=== PATIENT | female | born 1955 | race Caucasian/White ===

== ENCOUNTER 2017-09-04 17:03 | Inpatient (IN) | payer MEDICARE ==
[~2017-09-04] VITALS: Ht 170.2 cm; Wt 53.5 kg
[2017-09-04 17:42] LABS: *BILIRUBIN,URIN NEGATIVE (NEGATIVE); *BLOOD, URINE NEGATIVE (NEGATIVE); *CLARITY,URINE CLEAR (CLEAR); *COLOR,URINE YELLOW (YELLOW); *KETONES,URINE NEGATIVE (NEGATIVE); *PROTEIN,URINE NEGATIVE (NEGATIVE); *UROBILINOGEN,URINE 0.2 E.U./dl (NORMAL); LEUKOCYTE ESTERASE ,URINE NEGATIVE (NEGATIVE); NITRITE, URINE NEGATIVE (NEGATIVE); PH,URINE 7.5 (5.0-8.0); UGLUCOSE NEGATIVE (NEGATIVE)
[2017-09-04 17:52] LABS: SQUAMOUS EPITHELIAL CELL,UR FEW /HPF (NONE SEEN); WBC,URINE 0-3 /HPF (0-3)
[2017-09-04 17:53] LABS: BASOPHILS % (AUTO) 0.6 % (0.0-2.0); EOSINOPHILS # (AUTO) 0.1 K/uL (0.0-0.7); EOSINOPHILS % (AUTO) 1.9 % (0.0-7.0); HEMATOCRIT 35.6 % (37-47); HEMOGLOBIN 11.9 G/DL (12.0-16.0); LYMPHOCYTES % (AUTO) 27.2 % (20.5-51.5); MEAN CORPUSCULAR HEMOGLOBIN 29.1 UUG (27.0-31.0); MEAN CORPUSCULAR HGB CONC 34 g/dL (32.0-37.0); MEAN CORPUSCULAR VOLUME 86.8 FL (81.0-99.0); MONOCYTES # (AUTO) 0.6 K/UL (0.1-1.30); MONOCYTES % (AUTO) 8.5 % (0.0-11.0); NEUTROPHILS # (AUTO) 4.7 K/UL (1.8-8.9); NEUTROPHILS % (AUTO) 61.8 % (38.5-71.5); PLATELET COUNT (AUTO) 297 K/UL (150-450); RED BLOOD CELL COUNT(AUTO) 4.11 MIL/UL (4.2-5.4); WHITE BLOOD COUNT (AUTO) 7.4 K/UL (4.0-11.2)
[2017-09-04 17:54] LABS: *AMPHETAMINE, URINE NEGATIVE (NEGATIVE); *BARBITURATE, URINE NEGATIVE (NEGATIVE); *CANNABINOID, URINE NEGATIVE (NEGATIVE); *COCCAINE, URINE NEGATIVE (NEGATIVE); *OPIATE, URINE NEGATIVE (NEGATIVE); *PHENCYCLIDINE SCREEN,URINE NEGATIVE (NEGATIVE)
[2017-09-04 17:56] LABS: CARBON DIOXIDE 30 mmol/L (21-32); CHLORIDE 102 mmol/L (98-107); CREATININE 0.8 mg/dL (0.6-1.3); GLUCOSE 91 mg/dL (74-106); POTASSIUM 4.3 mmol/L (3.5-5.1); UREA NITROGEN, BLOOD 13 mg/dL (7-18)
[2017-09-04 18:07] LABS: ETHANOL < 3 MG/DL (0-0)
[2017-09-04 18:09] LABS: ACETAMINOPHEN < 2.0 ug/mL (10-30); ALANINE AMINOTRANSFERASE 23 U/L (14-59); ALKALINE PHOSPHATASE 96 U/L (50-136); ASPARTATE AMINOTRANSFERASE 14 U/L (15-37); BILIRUBIN,DIRECT 0.1 mg/dL (0.0-0.2); BILIRUBIN,TOTAL 0.3 mg/dL (0.2-1.0); TOTAL PROTEIN, SERUM 6.5 g/dL (6.4-8.2)
--- NOTE | 2017-09-04 18:35 | NUR ---
PT AT BEDSIDE TO TAKE THE PT HOME.
--- NOTE | 2017-09-04 18:38 | NUR ---
PT TRANSFERED TO MHU IN STABLE CONDITION
[2017-09-04] MEDS ORDERED: NA P133E RC (18:49)
[2017-09-04] MEDS ORDERED: CLON1TAB4 PO (18:49)
[2017-09-04] MEDS ORDERED: MAGN400O6 PO (18:49)
[2017-09-04] MEDS ORDERED: MAG-55 PO (18:49)
[2017-09-04] MEDS ORDERED: ACET325T53 PO (18:49)
[2017-09-04] MEDS ORDERED: IPRA3AMP IH (18:49)
[2017-09-04] MEDS ORDERED: NICO1PAT23 TD (18:49)
[2017-09-04] MEDS ORDERED: TRAZ-147 PO (18:49)
[2017-09-04] MEDS ORDERED: DOCU-141 PO (18:49)
[2017-09-04] MEDS ORDERED: BISA10SU12 RC (18:49)
[2017-09-04] MEDS ORDERED: SENN-167 PO (18:49)
[2017-09-04] MEDS ORDERED: PANT40TA4 PO (18:49)
[2017-09-04] MEDS ORDERED: METO25TA6 PO (18:49)
[2017-09-04] MEDS ORDERED: TEMA15CA PO (18:49)
[2017-09-04] MEDS ORDERED: MAG HYDROX/AL HYDROX/SIMETH 30 ML LIQUID UDC PO PRN (19:00)
[2017-09-04] MEDS ORDERED: MAGNESIUM HYDROXIDE 30 ML LIQUID UDC PO PRN ×2 (19:00→22:00)
[2017-09-04 20:30] VITALS: BP 119/82
[2017-09-04 20:35] VITALS: BP 119/82
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
[2017-09-04] MEDS ORDERED: ALBUTEROL SULFATE 2.5 MG/3 ML NEBU NEB PRN (22:00)
[2017-09-04] MEDS ORDERED: BISACODYL 10 MG SUPP.RECT RC PRN (22:00)
[2017-09-04] MEDS ORDERED: Medication Not On Formulary EA (Mag Hydrox/Al Hydrox/Simeth (Maalox Max Strength Susp) 3 PO PRN (22:00)
[2017-09-04] MEDS ORDERED: FLEET ENEMA 133 ML BOTTLE RC PRN (22:00)
[2017-09-04] MEDS ORDERED: IPRATROPIUM BROMIDE 0.5 MG/2.5 ML NEBU NEB PRN (22:00)
[2017-09-04] MEDS: LORAZEPAM 0.5 MG TABLET PO PRN (23:35)
--- NOTE | 2017-09-04 23:35 | NUR ---
PRN ativan, given for anxiety.
[2017-09-04] MEDS ORDERED: LORAZEPAM 0.5 MG TABLET ONE (23:47)
--- NOTE | 2017-09-05 06:00 | NUR ---
slept 6.75 hours total. currently watching tv with peers. no distress noted.
[2017-09-05 07:30] VITALS: BP 112/75
[2017-09-05] MEDS ORDERED: MAG HYDROX/AL HYDROX/SIMETH 30 ML LIQUID UDC PO PRN (07:45)
[2017-09-05] MEDS: LORAZEPAM 0.5 MG TABLET PO PRN ×2 (07:46→17:45)
[2017-09-05] MEDS: NICOTINE 14 MG/24HR PATCH TD SCH (08:46)
[2017-09-05] MEDS: DOCUSATE SODIUM 100 MG CAPSULE PO SCH ×2 (08:47→16:25)
[2017-09-05] MEDS: METOPROLOL TARTRATE 25 MG TABLET PO SCH ×2 (08:47→20:45)
[2017-09-05] MEDS: PANTOPRAZOLE SODIUM 40 MG TABLET.DR PO SCH (08:50)
[2017-09-05] MEDS ORDERED: NICOTINE 7 MG/24HR PATCH TD SCH (09:00)
[2017-09-05] MEDS: ACETAMINOPHEN 325 MG TABLET PO PRN ×2 (10:36→18:43)
--- NOTE | 2017-09-05 14:50 | NUR ---
Initial Discharge Instructions: Pt resides at [facility] ([facility]) [[address] [place], [place] [phone]]. Per pt, she would like to go there upon discharge. Test Manager awaiting return call from pt's , Brendan . SW will speak with pt,family,facility and MD regarding appropriate discharge plans. SW will form a safe and proper discharge.
[2017-09-05 16:07] VITALS: BP 115/74
[2017-09-05] MEDS ORDERED: QUETIAPINE FUMARATE 25 MG TABLET PO SCH (17:00)
[2017-09-05] MEDS ORDERED: IBUPROFEN 400 MG TABLET PO PRN (18:30)
[2017-09-05] MEDS: LIDOCAINE 5% PATCH TD SCH (19:02)
[2017-09-05 20:32] VITALS: BP 114/66
[2017-09-05] MEDS: SENNOSIDES 1 TABLET PO SCH (20:44)
[2017-09-05] MEDS: SIMVASTATIN 10 MG TABLET PO SCH (20:44)
[2017-09-05] MEDS: TRAZODONE 50 MG TABLET PO SCH (20:44)
[2017-09-05] MEDS: TEMAZEPAM 7.5 MG CAPSULE PO PRN (22:36)
[2017-09-06] MEDS: LORAZEPAM 0.5 MG TABLET PO PRN ×5 (03:30→23:49)
[2017-09-06] MEDS: PANTOPRAZOLE SODIUM 40 MG TABLET.DR PO SCH (06:18)
[2017-09-06] MEDS: ACETAMINOPHEN 325 MG TABLET PO PRN (06:18)
[2017-09-06 07:30] VITALS: BP 133/86
[2017-09-06] MEDS: LIDOCAINE 5% PATCH TD SCH (08:19)
[2017-09-06] MEDS: NICOTINE 14 MG/24HR PATCH TD SCH (08:19)
[2017-09-06] MEDS: METOPROLOL TARTRATE 25 MG TABLET PO SCH ×2 (08:19→20:00)
[2017-09-06] MEDS: DOCUSATE SODIUM 100 MG CAPSULE PO SCH ×2 (08:33→16:26)
[2017-09-06] MEDS ORDERED: QUETIAPINE FUMARATE 25 MG TABLET PO SCH (09:00)
[2017-09-06] MEDS: QUETIAPINE FUMARATE 100 MG TABLET PO SCH ×2 (09:41→16:21)
--- NOTE | 2017-09-06 12:21 | NUR ---
Discharge Planning Note: Pt's previous SNF unwilling to accept pt. SW faxed information to [facility] ([phone]). Spoke with Inga at the facility stating they are willing to accept pt when ready for discharge. SW will continue to talk with pt, family, MD, and facility regarding discharge plans. SW will form a safe and proper discharge plan.
[2017-09-06 15:00] VITALS: BP 112/71
[2017-09-06] MEDS: POLYVINYL ALCOHOL OPHT DROPS 15 ML BOTTLE EACHEYE PRN (16:21)
[2017-09-06] MEDS: SIMVASTATIN 10 MG TABLET PO SCH (20:00)
[2017-09-06] MEDS: TRAZODONE 50 MG TABLET PO SCH (20:00)
[2017-09-06] MEDS: SENNOSIDES 1 TABLET PO SCH (20:00)
[2017-09-06 20:18] VITALS: BP 140/93
[2017-09-06] MEDS: TEMAZEPAM 7.5 MG CAPSULE PO PRN (20:58)
[2017-09-07] MEDS: POLYVINYL ALCOHOL OPHT DROPS 15 ML BOTTLE EACHEYE PRN ×5 (01:00→20:56)
[2017-09-07] MEDS: PANTOPRAZOLE SODIUM 40 MG TABLET.DR PO SCH (06:21)
[2017-09-07 07:30] VITALS: BP 148/95
[2017-09-07 08:21] LABS: BASOPHILS % (AUTO) 0.5 % (0.0-2.0); EOSINOPHILS % (AUTO) 0.5 % (0.0-7.0); HEMATOCRIT 38.7 % (31.2-41.9); HEMOGLOBIN 13.8 g/dL (10.9-14.3); LYMPHOCYTES # (AUTO) 1.1 K/uL (20.0-40.0); LYMPHOCYTES % (AUTO) 17.3 % (20.5-51.5); MEAN CORPUSCULAR HEMOGLOBIN 30.6 uug (24.7-32.8); MEAN CORPUSCULAR HGB CONC 36 g/dL (32.3-35.6); MEAN CORPUSCULAR VOLUME 85.6 fL (75.5-95.3); MONOCYTES # (AUTO) 0.4 K/uL (2.0-10.0); MONOCYTES % (AUTO) 6.2 % (0.0-11.0); NEUTROPHILS # (AUTO) 4.9 K/uL (1.8-8.9); NEUTROPHILS % (AUTO) 75.5 % (38.5-71.5); PLATELET COUNT (AUTO) 311 K/uL (179-408); RED BLOOD CELL COUNT(AUTO) 4.52 MIL/uL (3.63-4.92); WHITE BLOOD COUNT (AUTO) 6.5 K/uL (3.8-11.8)
[2017-09-07] MEDS: DOCUSATE SODIUM 100 MG CAPSULE PO SCH ×2 (08:22→16:58)
[2017-09-07] MEDS: METOPROLOL TARTRATE 25 MG TABLET PO SCH ×2 (08:22→20:04)
[2017-09-07] MEDS: LIDOCAINE 5% PATCH TD SCH (08:22)
[2017-09-07] MEDS: QUETIAPINE FUMARATE 100 MG TABLET PO SCH ×2 (08:22→16:58)
[2017-09-07] MEDS: NICOTINE 14 MG/24HR PATCH TD SCH (08:22)
[2017-09-07 08:34] LABS: BILIRUBIN,TOTAL 0.5 mg/dL (0.2-1.0); CREATININE 0.7 mg/dL (0.6-1.3); MAGNESIUM 1.8 mg/dL (1.8-2.4); PHOSPHOROUS 3.9 mg/dL (2.5-4.9); POTASSIUM 4.2 mmol/L (3.5-5.1); TOTAL PROTEIN, SERUM 7.1 g/dL (6.4-8.2)
[2017-09-07] MEDS: LORAZEPAM 0.5 MG TABLET PO PRN ×2 (09:57→16:24)
[2017-09-07 15:00] VITALS: BP 147/99
[2017-09-07] MEDS: SIMVASTATIN 10 MG TABLET PO SCH (20:04)
[2017-09-07] MEDS: TRAZODONE 50 MG TABLET PO SCH (20:04)
[2017-09-07] MEDS: SENNOSIDES 1 TABLET PO SCH (20:04)
[2017-09-07 20:56] VITALS: BP_SYST 135; BP_DIAS 95; BP_DIAS 98
[2017-09-07] MEDS: TEMAZEPAM 7.5 MG CAPSULE PO PRN (21:27)
[2017-09-08] MEDS: POLYVINYL ALCOHOL OPHT DROPS 15 ML BOTTLE EACHEYE PRN ×4 (04:17→23:39)
[2017-09-08] MEDS: PANTOPRAZOLE SODIUM 40 MG TABLET.DR PO SCH (06:24)
[2017-09-08 07:30] VITALS: BP 149/95
[2017-09-08] MEDS: DOCUSATE SODIUM 100 MG CAPSULE PO SCH ×2 (09:29→16:35)
[2017-09-08] MEDS: QUETIAPINE FUMARATE 100 MG TABLET PO SCH ×2 (09:29→16:34)
[2017-09-08] MEDS: NICOTINE 14 MG/24HR PATCH TD SCH (09:29)
[2017-09-08] MEDS: METOPROLOL TARTRATE 25 MG TABLET PO SCH ×2 (09:29→20:08)
[2017-09-08] MEDS: LIDOCAINE 5% PATCH TD SCH (09:30)
[2017-09-08] MEDS: LORAZEPAM 0.5 MG TABLET PO PRN (13:17)
[2017-09-08 15:25] VITALS: BP 139/93
--- NOTE | 2017-09-08 18:55 | NUR ---
GPS: Less anxious and more re-directable. No increased agitation noted. Re-assured prn. Will continue to monitor.
[2017-09-08 20:06] VITALS: BP 118/71
[2017-09-08] MEDS: SENNOSIDES 1 TABLET PO SCH (20:08)
[2017-09-08] MEDS: TRAZODONE 50 MG TABLET PO SCH (20:08)
[2017-09-08] MEDS: SIMVASTATIN 10 MG TABLET PO SCH (20:08)
[2017-09-09] MEDS: TEMAZEPAM 7.5 MG CAPSULE PO PRN ×2 (00:27→22:02)
[2017-09-09] MEDS: LORAZEPAM 0.5 MG TABLET PO PRN ×2 (02:15→07:46)
[2017-09-09] MEDS: PANTOPRAZOLE SODIUM 40 MG TABLET.DR PO SCH (06:25)
[2017-09-09 07:30] VITALS: BP 141/92
[2017-09-09] MEDS: DOCUSATE SODIUM 100 MG CAPSULE PO SCH ×2 (08:42→16:52)
[2017-09-09] MEDS: LIDOCAINE 5% PATCH TD SCH (08:43)
[2017-09-09] MEDS: NICOTINE 14 MG/24HR PATCH TD SCH (08:43)
[2017-09-09] MEDS: QUETIAPINE FUMARATE 100 MG TABLET PO SCH ×2 (08:49→16:51)
[2017-09-09] MEDS: METOPROLOL TARTRATE 25 MG TABLET PO SCH ×2 (08:49→20:21)
[2017-09-09 15:30] VITALS: BP 140/94
[2017-09-09] MEDS: CLONAZEPAM 0.5 MG TABLET PO PRN (18:30)
[2017-09-09 20:00] VITALS: BP 120/85
[2017-09-09] MEDS: TRAZODONE 50 MG TABLET PO SCH (20:20)
[2017-09-09] MEDS: SENNOSIDES 1 TABLET PO SCH (20:20)
[2017-09-09] MEDS: SIMVASTATIN 10 MG TABLET PO SCH (20:20)
[2017-09-09] MEDS: POLYVINYL ALCOHOL OPHT DROPS 15 ML BOTTLE EACHEYE PRN (20:21)
--- NOTE | 2017-09-09 22:02 | NUR ---
received to care, pleasant upon approach. compliant with medications, and staff direction. as of 2201, she remains awake. PRN restoril was given at this time, for insomnia. currently lying in bed. will continue to monitor closely.
--- NOTE | 2017-09-09 23:00 | NUR ---
appars to be asleep. no distress noted.
[2017-09-10] MEDS: CLONAZEPAM 0.5 MG TABLET PO PRN ×3 (01:00→16:52)
--- NOTE | 2017-09-10 06:00 | NUR ---
slept 4.5 hours total. assisted with am care, and shower, currently lying in bed. no distress noted.
[2017-09-10] MEDS: PANTOPRAZOLE SODIUM 40 MG TABLET.DR PO SCH (06:28)
[2017-09-10 07:30] VITALS: BP 122/82
[2017-09-10] MEDS: METOPROLOL TARTRATE 25 MG TABLET PO SCH ×2 (08:41→20:15)
[2017-09-10] MEDS: QUETIAPINE FUMARATE 100 MG TABLET PO SCH ×2 (08:41→20:14)
[2017-09-10] MEDS: DOCUSATE SODIUM 100 MG CAPSULE PO SCH ×2 (08:41→16:59)
[2017-09-10] MEDS: NICOTINE 14 MG/24HR PATCH TD SCH (08:42)
[2017-09-10] MEDS: LIDOCAINE 5% PATCH TD SCH (08:42)
[2017-09-10] MEDS: POLYVINYL ALCOHOL OPHT DROPS 15 ML BOTTLE EACHEYE PRN ×2 (16:45→20:18)
[2017-09-10 16:51] VITALS: BP 124/85
[2017-09-10 20:14] VITALS: BP 116/67
[2017-09-10] MEDS: SIMVASTATIN 10 MG TABLET PO SCH (20:14)
[2017-09-10] MEDS: TRAZODONE 50 MG TABLET PO SCH (20:14)
[2017-09-10] MEDS: SENNOSIDES 1 TABLET PO SCH (20:14)
--- NOTE | 2017-09-10 22:00 | NUR ---
received to care, pleasant upon approach. compliant with medications, and staff direction. as of 0, she appears to be asleep. no distress noted. will continue to monitor closely.
[2017-09-10] MEDS: TEMAZEPAM 7.5 MG CAPSULE PO PRN (23:20)
--- NOTE | 2017-09-10 23:20 | NUR ---
PRN restoril, given for insomnia.
--- NOTE | 2017-09-10 23:45 | NUR ---
appears to be asleep.
[2017-09-11] MEDS: POLYVINYL ALCOHOL OPHT DROPS 15 ML BOTTLE EACHEYE PRN (02:15)
[2017-09-11] MEDS: CLONAZEPAM 0.5 MG TABLET PO PRN ×3 (02:15→18:46)
--- NOTE | 2017-09-11 02:15 | NUR ---
PRN klonopin, given for anxiety.
--- NOTE | 2017-09-11 06:30 | NUR ---
slept 7 hours, total.
[2017-09-11] MEDS: PANTOPRAZOLE SODIUM 40 MG TABLET.DR PO SCH (06:39)
[2017-09-11 08:03] VITALS: BP 102/67
[2017-09-11] MEDS: QUETIAPINE FUMARATE 100 MG TABLET PO SCH ×2 (08:08→20:10)
[2017-09-11] MEDS: NICOTINE 14 MG/24HR PATCH TD SCH (08:10)
[2017-09-11] MEDS: METOPROLOL TARTRATE 25 MG TABLET PO SCH ×2 (08:10→20:11)
[2017-09-11] MEDS: LIDOCAINE 5% PATCH TD SCH (08:10)
[2017-09-11] MEDS: DOCUSATE SODIUM 100 MG CAPSULE PO SCH ×2 (08:16→18:13)
[2017-09-11 15:50] VITALS: BP 137/84
[2017-09-11] MEDS: SENNOSIDES 1 TABLET PO SCH (20:10)
[2017-09-11] MEDS: SIMVASTATIN 10 MG TABLET PO SCH (20:10)
[2017-09-11] MEDS: TRAZODONE 50 MG TABLET PO SCH (20:10)
[2017-09-11 20:30] VITALS: BP 116/73
[2017-09-11] MEDS: TEMAZEPAM 7.5 MG CAPSULE PO PRN (22:10)
[2017-09-12] MEDS: CLONAZEPAM 0.5 MG TABLET PO PRN (05:11)
[2017-09-12] MEDS: PANTOPRAZOLE SODIUM 40 MG TABLET.DR PO SCH (06:17)
[2017-09-12 07:30] VITALS: BP 127/95
[2017-09-12] MEDS: NICOTINE 14 MG/24HR PATCH TD SCH (08:14)
[2017-09-12] MEDS: QUETIAPINE FUMARATE 100 MG TABLET PO SCH (08:14)
[2017-09-12] MEDS: LIDOCAINE 5% PATCH TD SCH (08:14)
[2017-09-12] MEDS: DOCUSATE SODIUM 100 MG CAPSULE PO SCH (08:14)
[2017-09-12 08:15] VITALS: BP 127/95
[2017-09-12] MEDS: METOPROLOL TARTRATE 25 MG TABLET PO SCH (08:15)
--- NOTE | 2017-09-12 09:00 | NUR ---
DC Note: Patient will be discharged to [facility] [[place], [place] [address]; ] via ambulance at 1:00pm. Spoke with PJ at the facility who states they are ready to accept patient today. Spoke with patient's /DPOA, Brendan who is aware and agreeable with discharge plans. Patient is aware and agreeable with discharge plans. Patient will follow-up at the facility with Dr. Deutsch (Pugger Helper) and Dr. Reed (Psychiatrist). Patient was provided with a brief substance abuse intervention for smoking cessation. Patient was referred to [employer] (800-LUNGUSA) and [employer] ([phone].)
--- NOTE | 2017-09-12 14:30 | NUR ---
1200 [facility]ED [facility] SNF SPOKE TO RN WHO WILL ADMIT THE PATIENT, NURSE INFORMED ABOUT MEDICATIONS TO CONTINUE DISCHARGE, DIAGNOSIS AND PATIENT MENTAL AND MEDICAL STATUS- RN VERBALIZED UNDERSTANDING. 1315 DISCHARGED PATIENT VIA AMBULANCE, ALERT AND OX3, DENIES SUICIDAL THOUGHTS/ DENIES HOMICIDAL IDEATIONS.
== END 2017-09-12 13:15 | DRG 885 ==
LOC: ER 17:04 → GPS 18:23
PROVIDERS: ADMIT Psychiatry & Neurology Psychiatry; ATTEND Internal Medicine
DX: F25.9 Schizoaffective disorder, unspecified (principal); E44.1 Mild protein-calorie malnutrition; E87.1 Hypo-osmolality and hyponatremia; F23 Brief psychotic disorder; Z68.1 Body mass index [BMI] 19.9 or less, adult; D64.9 Anemia, unspecified; I10 Essential (primary) hypertension; E78.5 Hyperlipidemia, unspecified; E88.09 Other disorders of plasma-protein metabolism, not elsewhere classified; F17.210 Nicotine dependence, cigarettes, uncomplicated; F32.9 Major depressive disorder, single episode, unspecified; J44.9 Chronic obstructive pulmonary disease, unspecified; K21.9 Gastro-esophageal reflux disease without esophagitis; I25.10 Atherosclerotic heart disease of native coronary artery without angina pectoris; M25.562 Pain in left knee
CPT/HCPCS: 36415; 80307; 83735; 84100; 84443; 85025; A4663; G0480; G0480-TC

== ENCOUNTER 2018-01-17 12:12 | Inpatient (IN) | payer MEDICARE, OTHER ==
[~2018-01-17] VITALS: Ht 167.6 cm; Wt 47.6 kg
[~2018-01-17 12:12] MED LIST: ACET325T53 PO; BISA10SU12 RC; CLON1TAB4 PO; DOCU-141 PO; IPRA3AMP IH; MAG-55 PO; MAGN400O6 PO; METO25TA6 PO; NA P133E RC; NICO-670 TD; PANT40TA4 PO; SENN-167 PO; TEMA15CA PO; TRAZ-147 PO
[2018-01-17] MEDS ORDERED: SIMV10TA6 PO (12:28)
[2018-01-17] MEDS ORDERED: BUDE10.22 IH (12:28)
[2018-01-17] MEDS ORDERED: ALBU18HF2 IH (12:28)
[2018-01-17] MEDS ORDERED: TEMA30CA5 PO (12:28)
[2018-01-17] MEDS ORDERED: LIDO30AD10 TD (12:28)
--- NOTE | 2018-01-17 12:58 | NUR ---
Attempted to give report to MHU, assigned nurse busy and to call back for report.
[2018-01-17] MEDS ORDERED: ALBUTEROL SULFATE 2.5 MG/3 ML NEBU NEB ONE (13:30)
[2018-01-17] MEDS ORDERED: HYDROCODONE/APAP 5-325MG TABLET PO ONE (13:30)
[2018-01-17] MEDS ORDERED: HYDROCODONE/APAP 5-325MG TABLET ONE (13:32)
[2018-01-17] MEDS ORDERED: ALBUTEROL SULFATE 2.5 MG/3 ML NEBU ONE (13:37)
--- NOTE | 2018-01-17 14:10 | NUR ---
Pt tarns to room 145b, Dr. Helms/ Dr. Deutsch accepting.
--- NOTE | 2018-01-17 14:10 | NUR ---
SBAR report given to Dm RN and pt trans to MHU with NAD noted.
[2018-01-17] MEDS ORDERED: MAG HYDROX/AL HYDROX/SIMETH 30 ML LIQUID UDC PO PRN (14:30)
[2018-01-17] MEDS ORDERED: MAGNESIUM HYDROXIDE 30 ML LIQUID UDC PO PRN (14:30)
[2018-01-17] MEDS: NICOTINE 21 MG/24HR PATCH TD SCH (16:11)
--- NOTE | 2018-01-17 17:43 | NUR ---
GPS RN NOTE:1430: ADMITTED PT FROM ER VIA WHEELCHAIR. PT IS ALERT, ORIENTED X2. PER 5150 HOLD, PT EXPRESSES SUICIDAL IDEATION BY OVERDOSE ON HER PRESCRIPTION, SHE HAS THOUGHTS TO BURN SELF WITH CIGARETTES. PT REFUSED TO ANSWER QUESTIONS AT THIS TIME AND REFUSED SKIN ASSESSMENT AND REFUSED TO SIGN ADMISSION PAPERWORK. CONTRABAND SEARCH DONE. ORIENTED TO ROOM AND UNIT POLICY. SAFETY ENVIRONMENT PROVIDED. Addendum: 01/17/18 at 1806 by KIKI BAÑUELOS RN UNDER THE CARE OF DR. BRADLEY AND DR. GUO AND WAS NOTIFIED OF ADMISSION. LEFT MESSAGE TO , VY DICKENS AT [phone].
--- NOTE | 2018-01-17 19:35 | NUR ---
Received pt in bed, asleep. Wakes to name call, easily. Alert, oriented x3. In stable condition. BP WNL. Tolerating RA, well. Afebrile. No active thoughts of harming self. Safety measures implemented. Will cont to monitor.
[2018-01-17 20:40] VITALS: BP 139/83
[2018-01-17] MEDS ORDERED: TRAZODONE 100 MG TABLET PO SCH (21:00)
[2018-01-17] MEDS: QUETIAPINE FUMARATE 100 MG TABLET PO SCH (21:25)
[2018-01-17] MEDS: ACETAMINOPHEN 325 MG TABLET PO PRN (23:03)
[2018-01-17] MEDS: LORAZEPAM 0.5 MG TABLET PO PRN (23:03)
--- NOTE | 2018-01-17 23:03 | NUR ---
Pt c/o left shoulder and leg pain. Tylenol administered as ordered. Pt also states feeling anxious, pacing in room. Ativan administered as ordered. Will cont to monitor.
[2018-01-17] MEDS ORDERED: IPRATROPIUM BROMIDE 0.5 MG/2.5 ML NEBU NEB PRN (23:30)
[2018-01-17] MEDS ORDERED: ALBUTEROL SULFATE 2.5 MG/3 ML NEBU NEB PRN (23:30)
--- NOTE | 2018-01-17 23:35 | NUR ---
Pt agitation ceased. Pt laying in bed, awake. No acute distress noted.
[2018-01-18] MEDS: TEMAZEPAM 7.5 MG CAPSULE PO PRN (01:51)
--- NOTE | 2018-01-18 01:51 | NUR ---
Pt c/o not being able to sleep. Restoril administered ordered.
--- NOTE | 2018-01-18 02:00 | NUR ---
assisted with a shower at her request, and assisted back to bed.
[2018-01-18 02:24] LABS: *BILIRUBIN,URIN NEGATIVE (NEGATIVE); *BLOOD, URINE NEGATIVE (NEGATIVE); *COLOR,URINE YELLOW (YELLOW); *KETONES,URINE NEGATIVE (NEGATIVE); *PROTEIN,URINE NEGATIVE (NEGATIVE); *UROBILINOGEN,URINE 0.2 E.U./dl (NORMAL); LEUKOCYTE ESTERASE ,URINE TRACE (NEGATIVE); NITRITE, URINE POSITIVE (NEGATIVE); PH,URINE 6.5 (5.0-8.0); UGLUCOSE NEGATIVE (NEGATIVE)
--- NOTE | 2018-01-18 02:30 | NUR ---
appears to be asleep. no distress no0ted.
[2018-01-18 02:45] LABS: *CLARITY,URINE HAZY (CLEAR)
[2018-01-18 02:46] LABS: BACTERIA,URINE MANY /HPF (NONE SEEN); RBC,URINE NONE SEEN /HPF (0-3); SQUAMOUS EPITHELIAL CELL,UR FEW /HPF (NONE SEEN)
[2018-01-18] MEDS: LORAZEPAM 0.5 MG TABLET PO PRN ×3 (05:54→15:14)
--- NOTE | 2018-01-18 05:54 | NUR ---
pt is now awake, and c/o anxiety; PRN ativan was given. currently watching tv. no distress noted.
--- NOTE | 2018-01-18 06:29 | NUR ---
Pt slept 8hrs and 45 min, total. Anxiety controlled. Pt in room, no acute changes noted. All needs attended. Safety maintained.
[2018-01-18 07:29] LABS: BASOPHILS % (AUTO) 0.9 % (0.0-2.0); EOSINOPHILS # (AUTO) 0.1 K/uL (0.0-0.7); EOSINOPHILS % (AUTO) 1.7 % (0.0-7.0); HEMATOCRIT 39.9 % (31.2-41.9); HEMOGLOBIN 13.5 g/dL (10.9-14.3); LYMPHOCYTES # (AUTO) 1.5 K/uL (20.0-40.0); LYMPHOCYTES % (AUTO) 34.1 % (20.5-51.5); MEAN CORPUSCULAR HEMOGLOBIN 28.8 uug (24.7-32.8); MEAN CORPUSCULAR HGB CONC 34 g/dL (32.3-35.6); MEAN CORPUSCULAR VOLUME 85.1 fL (75.5-95.3); MONOCYTES # (AUTO) 0.3 K/uL (2.0-10.0); MONOCYTES % (AUTO) 8.1 % (0.0-11.0); NEUTROPHILS # (AUTO) 2.4 K/uL (1.8-8.9); NEUTROPHILS % (AUTO) 55.2 % (38.5-71.5); PLATELET COUNT (AUTO) 254 K/uL (179-408); RED BLOOD CELL COUNT(AUTO) 4.68 MIL/uL (3.63-4.92); WHITE BLOOD COUNT (AUTO) 4.3 K/uL (3.8-11.8)
[2018-01-18 07:30] VITALS: BP 104/81
[2018-01-18] MEDS: PANTOPRAZOLE SODIUM 40 MG TABLET.DR PO SCH (07:31)
[2018-01-18 07:54] LABS: THYROID STIMULATING HORMONE 1.508 mIU/mL (0.358-3.740)
[2018-01-18 08:19] LABS: BILIRUBIN,TOTAL 0.4 mg/dL (0.2-1.0); CREATININE 0.8 mg/dL (0.6-1.3); MAGNESIUM 1.7 mg/dL (1.8-2.4); PHOSPHOROUS 4.3 mg/dL (2.5-4.9); TOTAL PROTEIN, SERUM 6.2 g/dL (6.4-8.2)
[2018-01-18] MEDS: NICOTINE 21 MG/24HR PATCH TD SCH (09:34)
[2018-01-18] MEDS: LIDOCAINE 5% PATCH TD SCH (09:45)
[2018-01-18] MEDS: QUETIAPINE FUMARATE 100 MG TABLET PO SCH ×2 (09:54→21:03)
[2018-01-18] MEDS ORDERED: TRAZODONE 50 MG TABLET PO PRN (10:30)
[2018-01-18] MEDS: FLUTICASONE/VILANTEROL 1 EACH BLST.W.DEV INH SCH (11:05)
[2018-01-18] MEDS ORDERED: MAGNESIUM OXIDE 400 MG TABLET PO ONE (11:30)
[2018-01-18] MEDS: CYANOCOBALAMIN 1000 MCG/ML VIAL IM SCH (12:21)
[2018-01-18] MEDS: SULFAMETH/TRIMETH 800/160 MG TABLET PO SCH ×2 (12:21→21:03)
[2018-01-18] MEDS: ACETAMINOPHEN 325 MG TABLET PO PRN (14:30)
[2018-01-18 15:00] VITALS: BP 112/77
[2018-01-18 20:00] VITALS: BP 105/75
[2018-01-18] MEDS: DOCUSATE SODIUM 100 MG CAPSULE PO SCH (21:02)
[2018-01-18] MEDS: HYDROCODONE/APAP 5-325MG TABLET PO PRN (21:02)
[2018-01-18] MEDS: SIMVASTATIN 10 MG TABLET PO SCH (21:03)
[2018-01-19] MEDS: TEMAZEPAM 7.5 MG CAPSULE PO PRN (00:55)
[2018-01-19] MEDS: LORAZEPAM 0.5 MG TABLET PO PRN ×3 (03:01→15:37)
[2018-01-19] MEDS: ACETAMINOPHEN 325 MG TABLET PO PRN (03:08)
[2018-01-19] MEDS: PANTOPRAZOLE SODIUM 40 MG TABLET.DR PO SCH (06:25)
--- NOTE | 2018-01-19 07:07 | NUR ---
RECEIVED Pt IN BED AWAKE, A+Ox3. Pt REPORTED 8/ DEPRESSION, THAT SHE'S DEPRESSED, "OVER MY SITUATION AT HOME WITH MY AND CONSTANT PAIN." Pt DENIES CURRENT THOOUGHTS OF SI AND CFS, BUT APPEARS UNRELIABLE FOR SAFETY OUTSIDE THE HOSPITAL. EXHIBITS BLUNTED AFFECT AND THOUGHT BLOCKING, AND SHE WILL STOP MED SENTENCE WITHOUT EXPLANATION. COMPLIANT WITH HS MEDICATIONS, COOPERAATIVE WITH STAFF DIRECTION AND CARE. APPEARS SOMEWHAT ANXIOUS, BUT REFUSED PRN. ISOLATIVE, NO PEER INTERACTION NOTED. 05/20 (L) KNEE PAIN EFFECTIVELY CONTROLLED WITH 5/325 NORCO. VS STABLE. Pt DID NOT SLEEP ALL NIGHT, REMAINS ANXIOUS AND DEPRESSED.
[2018-01-19 07:30] VITALS: BP 101/66
[2018-01-19] MEDS: SULFAMETH/TRIMETH 800/160 MG TABLET PO SCH (09:16)
[2018-01-19] MEDS: LIDOCAINE 5% PATCH TD SCH (09:17)
[2018-01-19] MEDS: NICOTINE 21 MG/24HR PATCH TD SCH (09:17)
[2018-01-19] MEDS: QUETIAPINE FUMARATE 100 MG TABLET PO SCH ×2 (09:17→21:43)
[2018-01-19] MEDS: FLUTICASONE/VILANTEROL 1 EACH BLST.W.DEV INH SCH (09:19)
[2018-01-19] MEDS: CYANOCOBALAMIN 1000 MCG/ML VIAL IM SCH (09:35)
[2018-01-19] MEDS ORDERED: TRAZODONE 50 MG TABLET PO SCH (11:15)
[2018-01-19] MEDS: HYDROCODONE/APAP 5-325MG TABLET PO PRN ×2 (13:42→21:50)
[2018-01-19] MEDS ORDERED: ALBUTEROL SULFATE 2.5 MG/3 ML NEBU NEB PRN (15:30)
[2018-01-19] MEDS: NITROFURANTOIN/NITROFURAN MAC 100 MG CAPSULE PO SCH ×2 (15:36→21:43)
[2018-01-19 16:15] VITALS: BP 95/59
[2018-01-19 20:05] VITALS: BP 107/60
[2018-01-19] MEDS: SIMVASTATIN 10 MG TABLET PO SCH (21:43)
[2018-01-19] MEDS: DOCUSATE SODIUM 100 MG CAPSULE PO SCH (21:43)
[2018-01-19] MEDS: TRAZODONE 100 MG TABLET PO SCH (21:43)
[2018-01-20] MEDS: TEMAZEPAM 7.5 MG CAPSULE PO PRN ×2 (01:45→21:11)
[2018-01-20] MEDS: PANTOPRAZOLE SODIUM 40 MG TABLET.DR PO SCH (06:01)
[2018-01-20] MEDS: LORAZEPAM 0.5 MG TABLET PO PRN ×2 (06:01→13:58)
[2018-01-20 07:30] VITALS: BP 94/57
[2018-01-20] MEDS: CYANOCOBALAMIN 1000 MCG/ML VIAL IM SCH (08:09)
[2018-01-20] MEDS: NICOTINE 21 MG/24HR PATCH TD SCH (08:09)
[2018-01-20] MEDS: NITROFURANTOIN/NITROFURAN MAC 100 MG CAPSULE PO SCH ×2 (08:09→20:02)
[2018-01-20] MEDS: LIDOCAINE 5% PATCH TD SCH (08:09)
[2018-01-20] MEDS: QUETIAPINE FUMARATE 100 MG TABLET PO SCH ×2 (08:09→20:02)
[2018-01-20] MEDS: FLUTICASONE/VILANTEROL 1 EACH BLST.W.DEV INH SCH (08:10)
[2018-01-20] MEDS: HYDROCODONE/APAP 5-325MG TABLET PO PRN ×3 (09:39→22:34)
--- NOTE | 2018-01-20 12:07 | NUR ---
Initial Discharge Instructions: Patient was residing at [facility] [[address], [place] [address]; [phone]]. Per pt she was "kicked out" of there because she was unable to provide a urine sample. Pt expressed she would like to return there. Sp[facility] with Martin at the [facility] who states they are unable to accept the patient back. SW will collaborate with pt and MD regarding appropriate discharge plan for this pt. SW will form a safe and proper discharge plan.
--- NOTE | 2018-01-20 12:16 | NUR ---
Firearms Report: Motor Boss completed and submitted [employer] Firearms Report on 01/20/18.
[2018-01-20 15:23] VITALS: BP 93/56
[2018-01-20] MEDS: ACETAMINOPHEN 325 MG TABLET PO PRN (20:01)
[2018-01-20] MEDS: SIMVASTATIN 10 MG TABLET PO SCH (20:02)
[2018-01-20] MEDS: DOCUSATE SODIUM 100 MG CAPSULE PO SCH (20:02)
[2018-01-20] MEDS: TRAZODONE 100 MG TABLET PO SCH (20:02)
[2018-01-20 20:44] VITALS: BP 91/60
[2018-01-21] MEDS: LORAZEPAM 0.5 MG TABLET PO PRN (05:20)
[2018-01-21] MEDS: ACETAMINOPHEN 325 MG TABLET PO PRN (05:20)
[2018-01-21] MEDS: PANTOPRAZOLE SODIUM 40 MG TABLET.DR PO SCH (06:03)
[2018-01-21 07:30] VITALS: BP 101/60
[2018-01-21] MEDS: CYANOCOBALAMIN 1000 MCG/ML VIAL IM SCH (08:36)
[2018-01-21] MEDS: QUETIAPINE FUMARATE 100 MG TABLET PO SCH ×2 (08:37→20:06)
[2018-01-21] MEDS: FLUTICASONE/VILANTEROL 1 EACH BLST.W.DEV INH SCH (08:37)
[2018-01-21] MEDS: LIDOCAINE 5% PATCH TD SCH (08:37)
[2018-01-21] MEDS: NICOTINE 21 MG/24HR PATCH TD SCH (08:37)
[2018-01-21] MEDS: NITROFURANTOIN/NITROFURAN MAC 100 MG CAPSULE PO SCH ×2 (08:37→20:05)
[2018-01-21] MEDS: HYDROCODONE/APAP 5-325MG TABLET PO PRN (13:41)
--- NOTE | 2018-01-21 14:22 | NUR ---
Discharge Planning Note: Spoke with patient about placement options, as she is unable to return to her previous placement. Patient expressed desire to go to a SNF, preferably in [facility] or farther north. ALEAH faxed inquiry to [facility] ([phone]; Attn: Hoa). Patient accepted. Spoke to pt about facility. Pt agreeable to discharge there when ready. ALEAH will follow-up with MD regarding anticipated DC date.
[2018-01-21 16:48] VITALS: BP 116/82
[2018-01-21] MEDS: DOCUSATE SODIUM 100 MG CAPSULE PO SCH (20:05)
[2018-01-21] MEDS: TRAZODONE 100 MG TABLET PO SCH (20:06)
[2018-01-21] MEDS: SIMVASTATIN 10 MG TABLET PO SCH (20:06)
[2018-01-21 20:36] VITALS: BP 120/82
[2018-01-22] MEDS: HYDROCODONE/APAP 5-325MG TABLET PO PRN (00:09)
--- NOTE | 2018-01-22 00:11 | NUR ---
PHARMACY NOTE: Pt C/O 06/20 LOWER BACK PAIN, REQUESTED NORCO. NORCO WAS PULLED FROM THE PYXIS, WHEN RN WENT BACK TO ROOM TO ADMINISTER, Pt WAS SLEEPING, MEDICATION WAS HELD. Pt AWOKE AT APPROXIMATELY MIDNIGHT, NORCO 5/325 ADMINISTERED AT THAT TIME.
[2018-01-22] MEDS: PANTOPRAZOLE SODIUM 40 MG TABLET.DR PO SCH (07:06)
[2018-01-22 07:30] VITALS: BP 148/89
[2018-01-22] MEDS: NITROFURANTOIN/NITROFURAN MAC 100 MG CAPSULE PO SCH ×2 (09:01→20:28)
[2018-01-22] MEDS: LIDOCAINE 5% PATCH TD SCH (09:02)
[2018-01-22] MEDS: CYANOCOBALAMIN 1000 MCG/ML VIAL IM SCH (09:02)
[2018-01-22] MEDS: NICOTINE 21 MG/24HR PATCH TD SCH (09:02)
[2018-01-22] MEDS: QUETIAPINE FUMARATE 100 MG TABLET PO SCH ×2 (09:02→20:31)
[2018-01-22] MEDS: FLUTICASONE/VILANTEROL 1 EACH BLST.W.DEV INH SCH (09:04)
[2018-01-22] MEDS: LORAZEPAM 0.5 MG TABLET PO PRN (12:54)
[2018-01-22 16:24] VITALS: BP 165/99
[2018-01-22 20:00] VITALS: BP 138/95
[2018-01-22] MEDS: DOCUSATE SODIUM 100 MG CAPSULE PO SCH (20:29)
[2018-01-22] MEDS: TRAZODONE 100 MG TABLET PO SCH (20:30)
[2018-01-22] MEDS: SIMVASTATIN 10 MG TABLET PO SCH (20:31)
--- NOTE | 2018-01-23 01:06 | NUR ---
PATIENT REMAINS IN ROOM AWAKE, ISOLATIVE/WITHDRAWN. PATIENT OCCASIONALLY COMING OUT OF HER ROOM AND STANDING STILL IN THE HALLWAY NOT SAYING A WORD, WHEN ASKED WHAT IS WRONG, DO YOU NEED ANYTHING? " I DON'T KNOW." OFFERED PATIENT IF SHE WOULD LIKE SOMETHING TO HELP HER SLEEP? "NO" PATIENT REDIRECTED TO ROOM.
[2018-01-23] MEDS: PANTOPRAZOLE SODIUM 40 MG TABLET.DR PO SCH (06:37)
[2018-01-23 07:30] VITALS: BP 129/75
[2018-01-23] MEDS: NITROFURANTOIN/NITROFURAN MAC 100 MG CAPSULE PO SCH ×2 (09:08→21:10)
[2018-01-23] MEDS: CYANOCOBALAMIN 1000 MCG/ML VIAL IM SCH (09:08)
[2018-01-23] MEDS: QUETIAPINE FUMARATE 100 MG TABLET PO SCH ×2 (09:08→21:11)
[2018-01-23] MEDS: LIDOCAINE 5% PATCH TD SCH (09:09)
[2018-01-23] MEDS: FLUTICASONE/VILANTEROL 1 EACH BLST.W.DEV INH SCH (09:09)
[2018-01-23] MEDS: NICOTINE 21 MG/24HR PATCH TD SCH (09:09)
[2018-01-23] MEDS: LORAZEPAM 0.5 MG TABLET PO PRN (18:38)
[2018-01-23 20:00] VITALS: BP 141/95
--- NOTE | 2018-01-23 21:00 | NUR ---
RECEIVED PT IN THE HALLWAY, SHE WAS NOTED A/O X 3 ABLE TO AMBULATED WITH STEADY GAIT. SHE WAS NOTED WITH DEPRESSED MOOD, FLAT AFFECT, WITHDRAWN. HOWEVER; SHE DENIES SI, AH/VA. SHE WAS ABLE TO CFS. SHE IS MEDICATION COMPLIANT AT THIS TIME. SAFETY EMPHASIS. BED AT LOWEST POSITION WITH SIDE RAIL UP X 2 WITH WHEELS LOCKED. ENVIRONMENT FREE FROM CLUTTER, WELL LIT AND FREQUENT HEAD CHECKS. WILL CONTINUE TO MONITOR CLOSELY.
[2018-01-23] MEDS: DOCUSATE SODIUM 100 MG CAPSULE PO SCH (21:09)
[2018-01-23] MEDS: TRAZODONE 100 MG TABLET PO SCH (21:09)
[2018-01-23] MEDS: SIMVASTATIN 10 MG TABLET PO SCH (21:11)
[2018-01-24] MEDS: PANTOPRAZOLE SODIUM 40 MG TABLET.DR PO SCH (06:43)
[2018-01-24 07:30] VITALS: BP 136/94
[2018-01-24] MEDS: LIDOCAINE 5% PATCH TD SCH (10:30)
[2018-01-24] MEDS: QUETIAPINE FUMARATE 100 MG TABLET PO SCH ×2 (10:30→20:56)
[2018-01-24] MEDS: NICOTINE 21 MG/24HR PATCH TD SCH (10:30)
[2018-01-24] MEDS: FLUTICASONE/VILANTEROL 1 EACH BLST.W.DEV INH SCH (10:30)
[2018-01-24] MEDS: CYANOCOBALAMIN 1000 MCG/ML VIAL IM SCH (10:30)
[2018-01-24] MEDS: NITROFURANTOIN/NITROFURAN MAC 100 MG CAPSULE PO SCH ×2 (11:35→20:55)
[2018-01-24 16:40] VITALS: BP 124/85
--- NOTE | 2018-01-24 17:30 | NUR ---
Gps/Psychiatry Physician- Quiet, remains in her oom, redirectable, flat affect, follows simple directions with min/prompting. Jayashree (Clinician) from [facility] , [facility] called, wants report on patient's progress [phone].
[2018-01-24] MEDS: DOCUSATE SODIUM 100 MG CAPSULE PO SCH (20:55)
[2018-01-24] MEDS: TRAZODONE 100 MG TABLET PO SCH (20:55)
[2018-01-24] MEDS: SIMVASTATIN 10 MG TABLET PO SCH (20:55)
[2018-01-24 21:17] VITALS: BP 124/82
--- NOTE | 2018-01-24 23:06 | NUR ---
Patient lying down on bed, quiet and keeps to herself. Compliant with her meds and displays a nice disposition at this time. Denies any pain. Will continue to monitor.
--- NOTE | 2018-01-24 23:30 | NUR ---
continues to sleep. no distress noted. will continue to monitor closely.
[2018-01-25 05:35] VITALS: BP 159/100
--- NOTE | 2018-01-25 05:35 | NUR ---
pt was observed to be what appeared to resemble a tonic-clonic seizure, with body tremors, and jerking movements, which lasted approximately 5-7 seconds, at 0530. as of 0535, her b/p is 159/100. remains disoriented. appears to have scratched herself on the neck. will continue to monitor closely
[2018-01-25 05:40] VITALS: BP 124/100
--- NOTE | 2018-01-25 05:40 | NUR ---
remains disoriented. v/s are 124/100, hr 124, O2sat is 96%
--- NOTE | 2018-01-25 05:40 | NUR ---
ADDENDUM; Dr Duffy was notified of incident. he ordered pt to be transferred to the Emergency room, and to have a stat CT of the head.
[2018-01-25 05:45] VITALS: BP 124/92
--- NOTE | 2018-01-25 05:45 | NUR ---
pt appears alert, now. v/s 127/92, hr 129, O2SAT 92. is aware she is in the hospital.
--- NOTE | 2018-01-25 06:00 | NUR ---
transferred to the emergency room, in stable condition, for evaluation.
[2018-01-25] MEDS: PANTOPRAZOLE SODIUM 40 MG TABLET.DR PO SCH (07:00)
--- NOTE | 2018-01-25 09:13 | NUR ---
Gpa/Merchant Tailor- Received patient from ER via wheel chair alert, , confused, no distress, b/p 133/90 02 sat 95%, tachy at 129, slighjtly irregular, per ER Nurse Dr Jenaro Spencer cleared patient. Pt. denies any pain or any discomfort, good oral care encouraged before eating her breakfast. Reviewed safety, monitored closely .
[2018-01-25 09:31] VITALS: BP 133/90
[2018-01-25] MEDS: NITROFURANTOIN/NITROFURAN MAC 100 MG CAPSULE PO SCH ×2 (09:36→21:14)
[2018-01-25] MEDS: LIDOCAINE 5% PATCH TD SCH (09:37)
[2018-01-25] MEDS: FLUTICASONE/VILANTEROL 1 EACH BLST.W.DEV INH SCH (09:37)
[2018-01-25] MEDS: QUETIAPINE FUMARATE 100 MG TABLET PO SCH ×2 (09:37→21:14)
[2018-01-25] MEDS: NICOTINE 21 MG/24HR PATCH TD SCH (09:37)
[2018-01-25] MEDS: CYANOCOBALAMIN 1000 MCG/ML VIAL IM SCH (09:38)
[2018-01-25 16:02] VITALS: BP 115/73
[2018-01-25] MEDS: ACETAMINOPHEN 325 MG TABLET PO PRN (16:09)
[2018-01-25 20:00] VITALS: BP 125/83
[2018-01-25] MEDS: DOCUSATE SODIUM 100 MG CAPSULE PO SCH (21:14)
[2018-01-25] MEDS: SIMVASTATIN 10 MG TABLET PO SCH (21:15)
[2018-01-25] MEDS: TRAZODONE 100 MG TABLET PO SCH (21:15)
[2018-01-25] MEDS: TEMAZEPAM 7.5 MG CAPSULE PO PRN (23:36)
[2018-01-25] MEDS: HYDROCODONE/APAP 5-325MG TABLET PO PRN (23:36)
[2018-01-26] MEDS: TEMAZEPAM 7.5 MG CAPSULE PO PRN (02:00)
[2018-01-26] MEDS: HYDROCODONE/APAP 5-325MG TABLET PO PRN (02:24)
[2018-01-26] MEDS: PANTOPRAZOLE SODIUM 40 MG TABLET.DR PO SCH (07:00)
--- NOTE | 2018-01-26 07:29 | NUR ---
GPS/NSG PATIENT OBSERVED ON UNIT PACING WITH INCREASED LEVEL OF ANXIETY. DISHEVELED APPEARANCE /UNKEMPT. OBSERVED APPROACHING STAFF, ASKING FOR THE NUMBER FOR THE HOSPITAL, ASKING TO SPEAK TO JAVI, PATIENT CONFUSED HARD TO REDIRECT UNABLE TO ESTABLISH A COHERENT LEVEL OF COMMUNICATION. PATIENT REPLIED TO STAFF WITH IRRELEVANT RESPONSES, ASKING STAFF TO REMOVE THE CLOCK BECAUSE SHE NEEDED TO KNOW THE TIME. PATIENT REQUESTING PAIN MANAGEMENT. COMPLIANT WITH HS MEDICATION. PRN FOR INSOMNIA ADMINISTERED ORDERED WITH INEFFECTIVE OUTCOME. PRN FOR PAIN LEVEL 7/10 GENERALIZED PAIN ADMINISTERED ORDERED WITH EFFECTIVE OUTCOME. PATIENT OBSERVED OUT ON HALLWAY ON SEVERAL OCCASIONS MAKING NONSENSICAL STATEMENTS, REQUIRED REDIRECTION WELL OBSERVATION FOR SAFETY PATIENT AT RISK FOR FALLS.
[2018-01-26 07:30] VITALS: BP 148/77
[2018-01-26] MEDS: NITROFURANTOIN/NITROFURAN MAC 100 MG CAPSULE PO SCH (08:09)
[2018-01-26] MEDS: LIDOCAINE 5% PATCH TD SCH (08:09)
[2018-01-26] MEDS: NICOTINE 21 MG/24HR PATCH TD SCH (08:09)
[2018-01-26] MEDS: FLUTICASONE/VILANTEROL 1 EACH BLST.W.DEV INH SCH (08:10)
[2018-01-26] MEDS: QUETIAPINE FUMARATE 100 MG TABLET PO SCH ×2 (10:55→21:00)
--- NOTE | 2018-01-26 15:00 | NUR ---
Gps/Potato Chip Sacking Machine Operator- Anxious, restless,wrapping bed sheets around her, speaking in Panamanian, asking for help, speech incoherent difficulty redirecting patient. Poured water on her bed, c/o pain on her left knee when offered tylenol, pt. spit out medication and threw cup of water on the wall. Patient put on the hyacinth-chair for for safety.
[2018-01-26] MEDS: LORAZEPAM 0.5 MG TABLET PO PRN (15:20)
[2018-01-26] MEDS: ACETAMINOPHEN 325 MG TABLET PO PRN (15:49)
--- NOTE | 2018-01-26 15:50 | NUR ---
Gps/Gear Generator Set Up Operator- Re offered tylenol 650 mg po, claimed she has left knee pain unable to rate pain level, kept calling out help ,help, r/t pain , pt. spit out tylenol when offered. gets figity, anxious, remains on her hyacinth-chair, continue to monitor closely for her safety, patient not making sense.
[2018-01-26 15:59] VITALS: BP 165/91
[2018-01-26] MEDS ORDERED: diphenhydrAMINE 50 MG/1 ML VIAL IM ONE (17:15)
[2018-01-26] MEDS ORDERED: LORAZEPAM 2 MG/1 ML VIAL IM ONE (17:15)
[2018-01-26] MEDS ORDERED: HALOPERIDOL DECANOATE 50 MG/1 ML AMPUL IM ONE (17:15)
[2018-01-26] MEDS ORDERED: HALOPERIDOL LACTATE 5 MG/1 ML VIAL IM ONE (17:30)
--- NOTE | 2018-01-26 17:30 | NUR ---
Gps/Track Subway Repair Supervisor- Patient continue to disrobe, not following direction, loud, sliding from her hyacinth-chair, restless, Dr Anderson was called, notified of pt. behavior, order received.
--- NOTE | 2018-01-26 18:10 | NUR ---
Gps/Principal Associate- patient continue to be aggressve with staff,trying to hit and bite , director information security was called to assist with pt. was put on close supervision, 1:1 for now. for patient safety. Patient continue to be agitated, grabbing trash can throwing them.Kept in front of Nurses station for close supervision.
--- NOTE | 2018-01-26 18:29 | NUR ---
Gps/Silk Screen Repairer- Loud talking in Sinhala, remains anxious,agitated, potential for fall closely supervised ..Constant redirections provided.
[2018-01-26] MEDS: DOCUSATE SODIUM 100 MG CAPSULE PO SCH (21:00)
[2018-01-26] MEDS: SIMVASTATIN 10 MG TABLET PO SCH (21:00)
[2018-01-26] MEDS: TRAZODONE 100 MG TABLET PO SCH (21:00)
[2018-01-26] MEDS ORDERED: HALOPERIDOL LACTATE 5 MG/1 ML VIAL IM STA (21:21)
[2018-01-26] MEDS ORDERED: LORAZEPAM 2 MG/1 ML VIAL IM STA (21:21)
[2018-01-26] MEDS ORDERED: diphenhydrAMINE 50 MG/1 ML VIAL IM STA (21:21)
--- NOTE | 2018-01-26 22:06 | NUR ---
Patient received in hyacinth chair, grabbing patient's clothing, yelling, screaming, aggressive, punching and kicking. Patient disrobing not able to follow directions. Patient is speaking in Greenlandic and Cook Islander, anxious, labile, refusing medication throwing water on the floor. Patient climbing out of the hyacinth chair, requires constant redirection. Patient alert/oriented x1 with confusion noted, disorganized. Dr. Nguyễn doing rounds and ordered Benadryl 25mg, Ativan 2mg, Haldol 5mg IM. Continue with current treatment plan. Patient remains with a 1:1 sitter for safety.
--- NOTE | 2018-01-27 02:35 | NUR ---
PATIENT REMAINS WITH A 1:1 SITTER FOR SAFETY. PATIENT REMAINS CONFUSED, DISORGANIZED, DISORIENTED. PATIENT CONTINUES TO DISROBE HER CLOTHING, TRYING TO CLIMB OUT OF THE CHRISTINA CHAIR. PATIENT REQUIRES CONSTANT REDIRECTION. PATIENT IS LESS AGITATED, HOWEVER IS UNPREDICTABLE. LESS YELLING/SCREAMING. PATIENT REMAINS LABILE WITH STAFF. WILL CONTINUE WITH CURRENT TREATMENT PLAN.
[2018-01-27] MEDS: PANTOPRAZOLE SODIUM 40 MG TABLET.DR PO SCH (06:32)
[2018-01-27] MEDS: NICOTINE 14 MG/24HR PATCH TD SCH (08:12)
[2018-01-27] MEDS: LIDOCAINE 5% PATCH TD SCH (08:12)
[2018-01-27] MEDS: FLUTICASONE/VILANTEROL 1 EACH BLST.W.DEV INH SCH (08:52)
[2018-01-27] MEDS: QUETIAPINE FUMARATE 200 MG TABLET PO SCH ×2 (09:00→21:00)
[2018-01-27] MEDS: METOPROLOL TARTRATE 25 MG TABLET PO SCH ×2 (09:00→21:00)
--- NOTE | 2018-01-27 09:45 | NUR ---
GPS: Nursing Notes: Severe Agitation:] Patient is awake and responding to her name, continue with 1:1 sitter for safety, refusing her Po medications, poor anger management, setting limits, but unable to follow directions, restless behavior, confused, kicking and hitting staff when assisting her with ADL's, talking and mumbling to unseen others, unable to be redirected, climbing on top of the hyacinth chair, Dr. Scooter sinha by charge nurse, continue to monitor patient for safety, continue with treatment plan.
[2018-01-27] MEDS: HYDROCODONE/APAP 5-325MG TABLET PO PRN (09:50)
[2018-01-27] MEDS ORDERED: diphenhydrAMINE 50 MG/1 ML VIAL IM STA (09:51)
[2018-01-27] MEDS ORDERED: HALOPERIDOL LACTATE 5 MG/1 ML VIAL IM STA (09:51)
[2018-01-27] MEDS ORDERED: LORAZEPAM 2 MG/1 ML VIAL IM STA (09:51)
[2018-01-27] MEDS: CYANOCOBALAMIN 1000 MCG/ML VIAL IM SCH (10:16)
--- NOTE | 2018-01-27 10:17 | NUR ---
GPS: Nursing Notes: Chemical Restraint: Patient continue to be over disruptive, restless behavior, unable to be redirected, poor impulse control, kicking and grabbing staff uniform and will not let go, confused, disorganized, episodes of trying to bite staff, Dr. Helms called and order: Haldol 5mg IM, Ativan 2mg IM and Benadryl 25mg IM STAT X1, refusing V/S, continue to be aggressive and uncooperative, continue with 1:1 sitter for safety, continue with treatment plan.
--- NOTE | 2018-01-27 10:47 | NUR ---
GPS: Nursing Notes: Reassessment of Chemical Restraint: Patient continue to be restless, trying to kick 1:1 sitter, confused, disorganized, talking incoherently, poor impulse control, internally preoccupied, unable to be redirected, striking out at staff, medication IM STAT was not effective, refusing V/S, informed charge nurse, continue with 1:1 sitter for safety, continue with treatment plan.
--- NOTE | 2018-01-27 15:07 | NUR ---
GPS: Nursing Notes: Restless, Agitated Behavior: Patient is awake and responding to internal stimuli by talking to unseen others, talking incoherently, restless behavior, crawling on the floor, kicking at staff, poor impulse control, setting limits, but unable to be redirected, continue with 1:1 sitter, but resistant with nursing care, continue with treatment plan.
[2018-01-27] MEDS ORDERED: OLANZAPINE 10 MG VIAL IM STA (15:16)
--- NOTE | 2018-01-27 15:39 | NUR ---
GPS: Nursing Notes: Chemical Restraint: Patient continue to be disruptive, impaired judgment, poor impulse control, resistant with nursing care, loud and angry affect, refusing her PO medications this am, episodes of trying to kick staff, striking out at staff, continue with 1:1 sitter for safety, care transfer to Dr. Anderson, orders from Dr. Anderson: Zyprexa 10mg IM STAT X1, continue to refuse V/S, continue with treatment plan.
--- NOTE | 2018-01-27 16:09 | NUR ---
GPS: Nursing Notes: Reassessment of Chemical Restraint: Patient is awake and responding to her name, poor impulse control, refusing V/S, kicking staff on the legs, resistant with nursing care, confused, disorganized, impaired judgment, medication IM was helpful, but not effective, episodes of shouting, continue with 1:1 sitter for safety, informed charge nurse, continue with treatment plan.
[2018-01-27] MEDS: DOCUSATE SODIUM 100 MG CAPSULE PO SCH (21:00)
[2018-01-27] MEDS: TRAZODONE 100 MG TABLET PO SCH (21:00)
[2018-01-27] MEDS: SIMVASTATIN 10 MG TABLET PO SCH (21:00)
[2018-01-27] MEDS: OLANZAPINE ZYDIS 5 MG TAB.RAPDIS PO SCH (21:00)
--- NOTE | 2018-01-27 21:39 | NUR ---
Patient received in hyacinth chair, remains with a 1:1 sitter for safety. Patient remains unpredictable, confused, disorganized, and resistant to nursing care. Patient less agitated, however is unpredictable. Patient continues to refuse medication kicking her legs when you come close to her, and refusing vital signs. Patient still grabbing clothing when residents walk by.anxious, labile. Poor impulse control, poor judgement, poor safety awareness. Will continue with current treatment plan.
[2018-01-28] MEDS: PANTOPRAZOLE SODIUM 40 MG TABLET.DR PO SCH (06:42)
[2018-01-28] MEDS: NICOTINE 14 MG/24HR PATCH TD SCH (08:37)
[2018-01-28] MEDS: CYANOCOBALAMIN 1000 MCG/ML VIAL IM SCH (08:37)
[2018-01-28] MEDS: FLUTICASONE/VILANTEROL 1 EACH BLST.W.DEV INH SCH (08:38)
[2018-01-28] MEDS: LIDOCAINE 5% PATCH TD SCH (08:38)
[2018-01-28] MEDS: QUETIAPINE FUMARATE 200 MG TABLET PO SCH ×2 (08:38→20:22)
[2018-01-28] MEDS: METOPROLOL TARTRATE 25 MG TABLET PO SCH ×2 (08:38→20:23)
[2018-01-28 20:00] VITALS: BP 137/78
[2018-01-28] MEDS: DOCUSATE SODIUM 100 MG CAPSULE PO SCH (20:22)
[2018-01-28] MEDS: SIMVASTATIN 10 MG TABLET PO SCH (20:22)
[2018-01-28] MEDS: OLANZAPINE ZYDIS 5 MG TAB.RAPDIS PO SCH (20:22)
[2018-01-28] MEDS: TRAZODONE 100 MG TABLET PO SCH (20:23)
--- NOTE | 2018-01-28 20:30 | NUR ---
RECEIVED PATIENT IN HER ROOM IN BED. SHE IS NOTED AWAKE A/O X 1. SHE CONTINUE ON 1:1 SUPERVISION FOR SAFETY PRECAUTION. NOTED CALM AND COOPERATIVE, COMPLIANT WITH MEDICATION REGIMENT. PT HAD FEW BITES OF A SANDWICH AND ORANGE JUICE. NOTED WITH DEPRESSED MOOD, FLAT AFFECT, POOR EYE CONTACT. POOR HISTORIAN. SAFETY EMPHASIS.
--- NOTE | 2018-01-28 22:59 | NUR ---
IT WAS NOTED IN THE I&O RECORDS THAT PT HAS NOT HAD A BM SINCE 01/21/18. WHEN ASKED. PT STATED THAT SHE HAD A BM YESTERDAY. ABDOMINAL ASSESSMENT NON-TENDER, NON-DISTENDED NORMAL BOWEL SOUNDS NOTED IN ALL 4 QUADRANT. PT DENIES PAIN OR DISCOMFORT. SHE DENIES MOM PRN. WILL CONTINUE TO MONITOR CLOSELY.
[2018-01-29] MEDS: PANTOPRAZOLE SODIUM 40 MG TABLET.DR PO SCH (06:44)
--- NOTE | 2018-01-29 07:00 | NUR ---
PT SLEPT FOR APPROX 9.00HRS THROUGH THE NIGHT. SHE WAS NOTED A/O X 1 NO CHANGES IN LOC. COMPLY WITH MEDICATION REGIMENT. NO BX PROBLEMS NOTED OR REPORTED DURING THE SHIFT.
[2018-01-29 07:30] VITALS: BP 127/75
[2018-01-29] MEDS: QUETIAPINE FUMARATE 200 MG TABLET PO SCH ×2 (09:35→20:10)
[2018-01-29] MEDS: LIDOCAINE 5% PATCH TD SCH (09:35)
[2018-01-29] MEDS: METOPROLOL TARTRATE 25 MG TABLET PO SCH ×2 (09:35→20:09)
[2018-01-29] MEDS: NICOTINE 14 MG/24HR PATCH TD SCH (09:38)
[2018-01-29] MEDS: CYANOCOBALAMIN 1000 MCG/ML VIAL IM SCH (09:45)
[2018-01-29] MEDS: FLUTICASONE/VILANTEROL 1 EACH BLST.W.DEV INH SCH (09:45)
[2018-01-29] MEDS: LORAZEPAM 0.5 MG TABLET PO PRN (12:01)
[2018-01-29] MEDS: HYDROCODONE/APAP 5-325MG TABLET PO PRN (14:44)
--- NOTE | 2018-01-29 14:45 | NUR ---
patient discharged to [facility] via ambulance in no acute distress with all belongings . REPORT CALLED TO KAITLIN AT THE FACILITY , REPORT GIVEN TO PARAMEDICS , SUTURES C/D/I WITH NO MDRAINAge or bleeding or swelling noted . Addendum: 01/29/18 at 1756 by MASOOD GRIFFIN RN charted on wrong patient dis regard above note
[2018-01-29] MEDS: GABAPENTIN 300 MG CAPSULE PO SCH ×2 (15:47→17:23)
[2018-01-29 16:24] VITALS: BP 116/82
[2018-01-29] MEDS: TRAZODONE 100 MG TABLET PO SCH (20:08)
[2018-01-29 20:09] VITALS: BP 120/78
[2018-01-29] MEDS: OLANZAPINE ZYDIS 5 MG TAB.RAPDIS PO SCH (20:10)
[2018-01-29] MEDS: SIMVASTATIN 10 MG TABLET PO SCH (20:10)
--- NOTE | 2018-01-29 20:15 | NUR ---
RECEIVED PATIENT IN HER BED, SHE IS A/O X 1, DISORGANIZED, EASILY IRRITABLE, GUARDED. WITHDRAWN, DEPRESSED MOOD, FLAT AFFECT. HOWEVER, NO AGGRESSIVE/COMBATIVE BX NOTED AT THIS TIME. DENIES SI OR PLAN TO HARM SELF. ABLE TO CFS. ABLE TO COMPLY WITH MEDICATION REGIMEN. PT CONTINUE ON 1:1 SUPERVISION FOR SAFETY PRECAUTION. WILL CONTINUE TO MONITOR.
[2018-01-29] MEDS: DOCUSATE SODIUM 100 MG CAPSULE PO SCH (20:29)
[2018-01-30] MEDS: PANTOPRAZOLE SODIUM 40 MG TABLET.DR PO SCH (06:12)
[2018-01-30] MEDS: HYDROCODONE/APAP 5-325MG TABLET PO PRN (06:12)
[2018-01-30 07:30] VITALS: BP 99/65
[2018-01-30] MEDS: CYANOCOBALAMIN 1000 MCG/ML VIAL IM SCH (08:28)
[2018-01-30] MEDS: QUETIAPINE FUMARATE 200 MG TABLET PO SCH ×2 (08:28→21:00)
[2018-01-30] MEDS: GABAPENTIN 300 MG CAPSULE PO SCH ×3 (08:28→17:34)
[2018-01-30] MEDS: NICOTINE 14 MG/24HR PATCH TD SCH (08:28)
[2018-01-30] MEDS: FLUTICASONE/VILANTEROL 1 EACH BLST.W.DEV INH SCH (08:29)
[2018-01-30] MEDS: METOPROLOL TARTRATE 25 MG TABLET PO SCH ×2 (08:29→21:00)
[2018-01-30] MEDS: LIDOCAINE 5% PATCH TD SCH (09:38)
[2018-01-30] MEDS: LORAZEPAM 0.5 MG TABLET PO PRN (11:04)
--- NOTE | 2018-01-30 13:01 | NUR ---
Gps/Dipper Fish- Had been pleasant and quiet, during rounds, had been compliant with her routine medications, refused to attend her group therapy, questioning her medications, reviewed with patient, verbalized understanding. Behavioral Health from [facility] called, reviewed patients' progress.
--- NOTE | 2018-01-30 13:49 | NUR ---
Discharge Note: Patient will be discharged to [facility] [[address] [place] [address]; [phone]] via ambulance. Spoke to Chelsea at the facility who states they are ready to accept the patient today. Patient is aware and agreeable with discharge plans. Spoke to Teodora at [facility] ([phone]) who follows the patient, and she is aware and agreeable with discharge plan. Patient will follow-up at the facility with Dr. Daniels (Ethylene Plant Helper) and Dr. Whiteside (Psychiatrist). Addendum: 01/30/18 at 1411 by JASSI TRUONG SW Patient was provided with a brief substance abuse intervention and referred to [facility] ([phone]); [facility] ([phone]) and [facility] National HelpLine (7-938-728-HELP (2144). Patient was also referred to the National Suicide Prevention Lifeline ( ).
--- NOTE | 2018-01-30 16:18 | NUR ---
Gps/Botanical Technical Officer- Discharge planning in progress, patient will be discharged to [facility] in [place], patient was well informed of her discharged.Report was already given to facility by DOMINIQUE Hicks. Patient in good spirit reviewed discharged instructions, and medications, safety emphasized patient verbalized understanding.
[2018-01-30 16:35] VITALS: BP 116/68
--- NOTE | 2018-01-30 18:38 | NUR ---
Gps/Job Placement Specialist- Patient starting to get anxious paranoid about her dc. plan, she called her ex- Brendan Mcnair at [phone] informed of dc.plan . Noted increased paranoia, she told her ex she does not trust this discharge plan "something is cooking" . Talked to ex- informed facility she's going to and tel.number was given per pt. request. Awaiting for the ambulance for poultry picker as arranged , estimated poultry picker time was 1814.
[2018-01-30 20:17] VITALS: BP 106/76
--- NOTE | 2018-01-30 20:30 | NUR ---
gps/visitor services assistant: patient refused all po hs medications. patient discharged to [facility] via ambulanz in stable condition @ 0 pm. v/s wnl. all belonging given upon discharg .no agitation noted. a
--- NOTE | 2018-01-30 20:57 | NUR ---
Transportation staff here to pick pt, pt refusing to get out of her room saying " i am not leaving," she demanded to see the ID card of the transport staff which was shown to her, meanwhile, application security engineer was called in for "show of presence" , pt was still resisting and refusing to go on the gurney, pt stating she "has the right to refuse discharge", reality orientation provided, pt becoming more verbal and intimidating, pt was strongly encouraged to sit on the gurney, her legs put up and safety belts applied for safety. Pt left the unit with all her belongings.
[2018-01-30] MEDS: DOCUSATE SODIUM 100 MG CAPSULE PO SCH (21:00)
[2018-01-30] MEDS: TRAZODONE 100 MG TABLET PO SCH (21:00)
[2018-01-30] MEDS: OLANZAPINE ZYDIS 5 MG TAB.RAPDIS PO SCH (21:00)
[2018-01-30] MEDS: SIMVASTATIN 10 MG TABLET PO SCH (21:00)
== END 2018-01-30 21:00 | DRG 885 ==
LOC: ER 12:16 → GPS 13:54
PROVIDERS: ADMIT Psychiatry & Neurology Psychiatry; ATTEND Internal Medicine
DX: F25.0 Schizoaffective disorder, bipolar type (principal); E83.42 Hypomagnesemia; E87.1 Hypo-osmolality and hyponatremia; N39.0 Urinary tract infection, site not specified; E88.09 Other disorders of plasma-protein metabolism, not elsewhere classified; Z59.0 Homelessness; F17.210 Nicotine dependence, cigarettes, uncomplicated; J44.9 Chronic obstructive pulmonary disease, unspecified; M79.7 Fibromyalgia; K21.9 Gastro-esophageal reflux disease without esophagitis; Z88.1 Allergy status to other antibiotic agents; Z88.0 Allergy status to penicillin; I25.10 Atherosclerotic heart disease of native coronary artery without angina pectoris; I10 Essential (primary) hypertension; M13.862 Other specified arthritis, left knee; G47.30 Sleep apnea, unspecified; E53.8 Deficiency of other specified B group vitamins; E78.5 Hyperlipidemia, unspecified; G31.9 Degenerative disease of nervous system, unspecified; G89.29 Other chronic pain; Z90.710 Acquired absence of both cervix and uterus
CPT/HCPCS: 36415; 70030-TC; 70450; 71045; 82306; 83735; 84100; 84443; 85025; 87077; 87086; 93005; 95819; A4663; J1200; J1630; J2060; J2358; J3420; J7030

== ENCOUNTER 2018-01-25 06:00 | Emergency (ER) | payer MEDICARE, OTHER ==
[~2018-01-25] VITALS: Ht 165.1 cm; Wt 52.2 kg
[~2018-01-25 06:00] MED LIST changes: -ACET325T53 PO; +ALBU18HF2 IH; -BISA10SU12 RC; +BUDE10.22 IH; -CLON1TAB4 PO; -DOCU-141 PO; -IPRA3AMP IH; +LIDO30AD10 TD; -MAG-55 PO; -MAGN400O6 PO; -METO25TA6 PO; -NA P133E RC; -NICO-670 TD; -SENN-167 PO; +SIMV10TA6 PO; -TEMA15CA PO; -TRAZ-147 PO
[2018-01-25] MEDS ORDERED: LORAZEPAM 2 MG/1 ML VIAL IV ONE (06:45)
[2018-01-25] MEDS ORDERED: IV NORMAL SALINE 1000 ML BAG IV ONE ×2 (06:45→07:15)
[2018-01-25] MEDS ORDERED: LORAZEPAM 2 MG/1 ML VIAL ONE (06:45)
[2018-01-25 06:52] LABS: BASOPHILS # (AUTO) 0.1 K/uL (0.0-8.0); BASOPHILS % (AUTO) 1.2 % (0.0-2.0); EOSINOPHILS % (AUTO) 0.5 % (0.0-7.0); HEMATOCRIT 45.2 % (31.2-41.9); HEMOGLOBIN 15.5 g/dL (10.9-14.3); LYMPHOCYTES # (AUTO) 2.6 K/uL (20.0-40.0); LYMPHOCYTES % (AUTO) 33.4 % (20.5-51.5); MEAN CORPUSCULAR HEMOGLOBIN 29.6 uug (24.7-32.8); MEAN CORPUSCULAR HGB CONC 34 g/dL (32.3-35.6); MEAN CORPUSCULAR VOLUME 86.4 fL (75.5-95.3); MONOCYTES # (AUTO) 0.7 K/uL (2.0-10.0); MONOCYTES % (AUTO) 8.6 % (0.0-11.0); NEUTROPHILS # (AUTO) 4.3 K/uL (1.8-8.9); NEUTROPHILS % (AUTO) 56.3 % (38.5-71.5); PLATELET COUNT (AUTO) 366 K/uL (179-408); RED BLOOD CELL COUNT(AUTO) 5.23 MIL/uL (3.63-4.92); WHITE BLOOD COUNT (AUTO) 7.7 K/uL (3.8-11.8)
[2018-01-25 07:01] LABS: CARBON DIOXIDE 24 mmol/L (21-32); CHLORIDE 95 mmol/L (98-107); CREATININE 1.2 mg/dL (0.6-1.3); GLUCOSE 149 mg/dL (74-106); POTASSIUM 3.7 mmol/L (3.5-5.1); UREA NITROGEN, BLOOD 10 mg/dL (7-18)
[2018-01-25 07:07] LABS: ALANINE AMINOTRANSFERASE 17 U/L (14-59); ALKALINE PHOSPHATASE 86 U/L (50-136); ASPARTATE AMINOTRANSFERASE 10 U/L (15-37); BILIRUBIN,DIRECT 0.1 mg/dL (0.0-0.2); BILIRUBIN,TOTAL 0.7 mg/dL (0.2-1.0); PHENYTOIN (DILANTIN) 0.7 ug/mL (10.0-20.0); TOTAL PROTEIN, SERUM 7.2 g/dL (6.4-8.2)
[2018-01-25 07:09] LABS: ETHANOL < 3 MG/DL (0-0); PHENOBARBITAL < 1.0 ug/mL (15.0-39.0)
--- NOTE | 2018-01-25 07:24 | NUR ---
PT IS IN ROOM #1A. DR PARSONS EVALUATED THE PT. NO SEIZURES ACTIVITY NOTED AT THIS TIME. PT IS RESTING COMFORTABLY IN BED. CONTINUE TO MONITOR THE PT.
--- NOTE | 2018-01-25 09:17 | NUR ---
PT WAS TRANSFERED BACK TO U ROOM #145B ACCORDING TO DR PARSONS ORDER. NO S/S OF DISTRESS AT THIS TIME. NO SEIZURES. NO SOB. NO N/V. GAIT IS STABLE. PT DENIES PAIN. REPORT WAS GIVEN TO MHU RN.
[2018-01-25 09:20] VITALS: BP 132/74
[2018-01-25 09:50] LABS: *AMPHETAMINE, URINE NEGATIVE (NEGATIVE); *BARBITURATE, URINE NEGATIVE (NEGATIVE); *CANNABINOID, URINE NEGATIVE (NEGATIVE); *COCCAINE, URINE NEGATIVE (NEGATIVE); *OPIATE, URINE NEGATIVE (NEGATIVE); *PHENCYCLIDINE SCREEN,URINE NEGATIVE (NEGATIVE)
== END 2018-01-25 09:21 | disposition home or self-care (01) ==
LOC: ER 06:04
DX: R56.9 Unspecified convulsions (principal); I25.10 Atherosclerotic heart disease of native coronary artery without angina pectoris; I10 Essential (primary) hypertension; J44.9 Chronic obstructive pulmonary disease, unspecified; J45.909 Unspecified asthma, uncomplicated; K21.9 Gastro-esophageal reflux disease without esophagitis; Z88.0 Allergy status to penicillin; Z88.1 Allergy status to other antibiotic agents; Z88.8 Allergy status to other drugs, medicaments and biological substances; Z79.899 Other long term (current) drug therapy
CPT/HCPCS: 36415; 71045; 80184; 80307; 85025; 85730; 93005; A4663; G0480; J2060; J7030

== ENCOUNTER 2019-10-14 13:35 | Inpatient (IN) | payer MEDICARE, OTHER ==
[~2019-10-14] VITALS: Ht 162.6 cm; Wt 53.5 kg
[~2019-10-14 13:35] MED LIST changes: -SIMV10TA6 PO; +SIMV10TA98 PO
--- NOTE | 2019-10-14 13:48 | NUR ---
Ecdis N Navigation Operator assumes care, pending medical clearance for psych admission@this time. Patient is AOx4, calm & cooperative at the moment.
[2019-10-14] MEDS ORDERED: GABA300C PO (13:54)
[2019-10-14] MEDS ORDERED: TEMA30CA5 PO (13:54)
[2019-10-14] MEDS ORDERED: ATOR20TA PO (13:54)
[2019-10-14] MEDS ORDERED: FENO48TA PO (13:54)
[2019-10-14] MEDS ORDERED: QUET200T PO (13:54)
[2019-10-14] MEDS ORDERED: DULO60CA45 PO (13:54)
[2019-10-14] MEDS ORDERED: MELO15TA13 PO (13:54)
[2019-10-14] MEDS ORDERED: LORA-259 PO (13:54)
[2019-10-14] MEDS ORDERED: TRAZ-182 PO (13:54)
--- NOTE | 2019-10-14 14:14 | NUR ---
Patient is admitted to [facility] , under care of Dr. Anderson & [facility] hospitalist (Kendra) Belongings List completed. Nursing hands off report given to nurse [email or web address]. Patient will go to [facility] as soon as possible.
[2019-10-14] MEDS ORDERED: LORAZEPAM 0.5 MG TABLET PO ONE (14:15)
--- NOTE | 2019-10-14 14:22 | NUR ---
Patient ambulated with steady gait from ER bed 3 to ER bed 4B. Patient was seen asking for a cigarrette from another ER patient. I explained to patient that we have a NO smoking policy in this ER department.
[2019-10-14] MEDS ORDERED: LORAZEPAM 1 MG TABLET ONE (14:26)
[2019-10-14 15:35] VITALS: BP 125/67
[2019-10-14] MEDS ORDERED: BLOOD SUGAR DIAGNOSTIC 1 EACH STRIP VI ONE (16:15)
[2019-10-14] MEDS ORDERED: TEMAZEPAM 7.5 MG CAPSULE PO PRN (16:15)
[2019-10-14] MEDS ORDERED: ACETAMINOPHEN 325 MG TABLET PO PRN (16:15)
[2019-10-14] MEDS ORDERED: MAGNESIUM HYDROXIDE 30 ML LIQUID UDC PO PRN (16:15)
[2019-10-14] MEDS ORDERED: MAG HYDROX/AL HYDROX/SIMETH 30 ML LIQUID UDC PO PRN (16:15)
--- NOTE | 2019-10-14 16:52 | NUR ---
ADMITTING NOTES: ADMITTING THIS 64 Y/O FEMALE ARRIVED VIA GURNEY FROM ER , PATIENT WAS ON 5150 HOLD FOR GRAVELY DISABLED, ADVISEMENT GIVEN TO THE PATIENT, FACE TO FACE INTERVIEW WAS DONE, PATIENT AOX3-4, COMPLIANT , DENIES SI AND HI, ORIENTED WITH THE UNIT AND ROOM MATE, CALLED DR. RAMIREZ WITH ORDERS MADE AND CARRIED OUT
[2019-10-14] MEDS ORDERED: ALBUTEROL SULFATE 8 GM HFA.AER.AD IH PRN (17:15)
[2019-10-14] MEDS ORDERED: INFLUENZA VACCINE 2019-2020 0.5 ML DISP.SYRIN IM ONE (17:15)
[2019-10-14] MEDS: NICOTINE 14 MG/24HR PATCH TD SCH (17:23)
[2019-10-14] MEDS ORDERED: ALBUTEROL SULFATE 2.5 MG/3 ML NEBU NEB PRN (17:30)
--- NOTE | 2019-10-14 17:53 | NUR ---
FLU VACCINE GIVEN AT RIGHT DELTOID, PATIENT TOLERATED THE PROCEDURE
[2019-10-14] MEDS ORDERED: DEXTROSE 50% 50 ML DISP.SYRIN IV PRN (18:15)
[2019-10-14] MEDS: ATORVASTATIN 20 MG TABLET PO SCH (20:14)
[2019-10-14] MEDS: CLONAZEPAM 0.5 MG TABLET PO PRN (20:15)
[2019-10-14] MEDS: BLOOD SUGAR DIAGNOSTIC 1 EACH STRIP VI SCH (20:22)
[2019-10-14 20:38] VITALS: BP 114/73
[2019-10-14] MEDS ORDERED: FLUTICASONE/SALMETEROL 250/50 INHALER INH SCH (21:00)
--- NOTE | 2019-10-14 22:00 | NUR ---
received to care, highly visible on unit, pleasant upon approach. compliant with medications and staff direction. YNES ames was given at 2014. as of 2199, she appears to be asleep. no distress noted.
--- NOTE | 2019-10-14 23:50 | NUR ---
PRN restotil was given for insomnia.
--- NOTE | 2019-10-15 00:30 | NUR ---
appears to be asleep. no distress noted
[2019-10-15] MEDS: CLONAZEPAM 0.5 MG TABLET PO PRN (03:02)
--- NOTE | 2019-10-15 03:02 | NUR ---
PRN kwaku, superintendent horticulture for anxiety
--- NOTE | 2019-10-15 03:30 | NUR ---
appears to be asleep.
[2019-10-15 03:48] LABS: *BILIRUBIN,URIN NEGATIVE (NEGATIVE); *BLOOD, URINE NEGATIVE (NEGATIVE); *CLARITY,URINE CLEAR (CLEAR); *COLOR,URINE YELLOW (YELLOW); *KETONES,URINE NEGATIVE (NEGATIVE); *UROBILINOGEN,URINE 0.2 E.U./dl (NORMAL); LEUKOCYTE ESTERASE ,URINE NEGATIVE (NEGATIVE); NITRITE, URINE NEGATIVE (NEGATIVE); UGLUCOSE NEGATIVE (NEGATIVE)
--- NOTE | 2019-10-15 06:00 | NUR ---
slept fairly well. currently taking a shower. no distress noted.
[2019-10-15] MEDS: BLOOD SUGAR DIAGNOSTIC 1 EACH STRIP VI SCH ×2 (06:33→11:55)
[2019-10-15 07:30] VITALS: BP 104/57
[2019-10-15] MEDS: GABAPENTIN 300 MG CAPSULE PO SCH (08:25)
[2019-10-15] MEDS: NICOTINE 14 MG/24HR PATCH TD SCH (08:25)
[2019-10-15] MEDS: PANTOPRAZOLE SODIUM 40 MG TABLET.DR PO SCH (08:25)
[2019-10-15] MEDS: MELOXICAM 7.5 MG TABLET PO SCH (08:26)
[2019-10-15] MEDS: FENOFIBRATE NANOCRYSTALLIZED 48 MG TABLET PO SCH (08:27)
[2019-10-15] MEDS: LIDOCAINE 5% PATCH TD SCH (08:27)
[2019-10-15] MEDS: FLUTICASONE/VILANTEROL 1 EACH BLST.W.DEV INH SCH (08:28)
[2019-10-15] MEDS ORDERED: FENOFIBRATE NANOCRYSTALLIZED 48 MG TABLET PO SCH (09:00)
[2019-10-15] MEDS: DULOXETINE 60 MG CAPSULE.DR PO SCH (09:19)
[2019-10-15] MEDS ORDERED: CLONAZEPAM 1 MG TABLET PO PRN (13:00)
--- NOTE | 2019-10-15 13:48 | NUR ---
Social Work Note: Wellness Director called both of the patient's next of kin contacts listed in the patient's chart, Brendan Norton ([phone]) and Brendan Monahan ([phone]) however neither of the numbers are correct/working numbers.
--- NOTE | 2019-10-15 14:22 | NUR ---
Social Work Note/Coordination of Care: crime prevention worker called [facility] ([phone]) regarding patient's plan for discharge and ability to return back when she is ready. This technical proposal writer left a message for the case management social worker, Marnie Yanez and is awaiting a call back. crime prevention worker also called [facility] ([phone]) and spoke with the red hat open stack administrator, Kimberly who stated that they do not have any beds available, and if they did, patient would have to get a referral from a clinic directly in [place] not out of [facility].
--- NOTE | 2019-10-15 15:30 | NUR ---
Social Work Note/Initial Discharge Note: Patient currently resides in [facility] [id number], [place] [address] ([phone]). Patient would like to return there upon discharge. Gleason Operator will continue to work with patient and MD to ensure a safe and proper discharge plan .
--- NOTE | 2019-10-15 15:34 | NUR ---
Social Work Note/Coordination of Care: telecommunications linesworker called [facility] ([phone]) but was redirected to [facility] behavioral [facility] division ([phone]) and left a message for director of casework services, Berenice Nina to return my call. After speaking with [facility] ([phone]) Isis who stated that patient can receive psychiatric services at their clinic after she is discharged, she directed me to the patient's director of casework services as stated above, Berenice Nina. Isis stated that upon discharge the patient can also be referred for Crisis Stabilization for a 23 hour bed after pt is discharged from out hospital and later will be referred to stable housing (Berenice would be able to assist with this). SW awaiting director of casework services ,Berenice Nina, call back to coordinate care for patient's discharge.
[2019-10-15 16:00] VITALS: BP 103/66
[2019-10-15 20:00] VITALS: BP 101/50
[2019-10-15] MEDS: ATORVASTATIN 20 MG TABLET PO SCH (20:46)
[2019-10-15] MEDS: QUETIAPINE FUMARATE 200 MG TABLET PO SCH (20:46)
[2019-10-15] MEDS: TRAZODONE 100 MG TABLET PO SCH (21:52)
--- NOTE | 2019-10-15 22:30 | NUR ---
received to care, asleep in bed, but easy to awaken. remains isolative. no interactions with peers noted. compliant with medications and staff direction. po fluids and snack were given. as of 2229, she appears to be asleep. no distress noted. will continue to monitor closely.
--- NOTE | 2019-10-16 06:00 | NUR ---
slept 8.25 hours. continues to sleep. no distress noted.
[2019-10-16 07:30] VITALS: BP 132/79
[2019-10-16] MEDS: GABAPENTIN 300 MG CAPSULE PO SCH (08:31)
[2019-10-16] MEDS: PANTOPRAZOLE SODIUM 40 MG TABLET.DR PO SCH (08:31)
[2019-10-16] MEDS: FLUTICASONE/VILANTEROL 1 EACH BLST.W.DEV INH SCH (08:32)
[2019-10-16] MEDS: MELOXICAM 7.5 MG TABLET PO SCH (08:33)
[2019-10-16] MEDS: FENOFIBRATE NANOCRYSTALLIZED 48 MG TABLET PO SCH (08:34)
[2019-10-16] MEDS: LIDOCAINE 5% PATCH TD SCH (08:35)
[2019-10-16] MEDS: NICOTINE 14 MG/24HR PATCH TD SCH (08:38)
[2019-10-16] MEDS: DULOXETINE 60 MG CAPSULE.DR PO SCH (09:10)
--- NOTE | 2019-10-16 10:33 | NUR ---
Social Work Note/Firearms Report (DOJ): Lead Applications Developer completed and submitted a [employer] firearms report for 5250 grave disability certification. A copy of report has been placed in patient chart.
--- NOTE | 2019-10-16 11:33 | NUR ---
Social Work Note/Coordination of Care: Journeyman Plumber received a call from Jacques Pretty ([phone]) with [facility] and is requesting to do a transfer of the patient to their psychiatric healthcare facility in [place]. Journeyman Plumber faxed a referral packet to jessenia for review as per his request. Awaiting a notice back from Jessenia.
--- NOTE | 2019-10-16 11:51 | NUR ---
Social Work Note/Substance Abuse Intervention Loom Fixer Apprentice met with patient and conducted a brief substance abuse intervention regarding her daily cigarette smoking. Loom Fixer Apprentice provided patient with referrals to [facility] ([phone]), [facility] ([phone]), and Substance Abuse and Mental Health Services Administration (SAMHSA) National Helpline ([phone]).
--- NOTE | 2019-10-16 13:07 | NUR ---
Social Work Note/Coordination of Care: Insurance Verification Clerk spoke with Kayla ([phone]) from the psychiatric health facility in [facility] department of Behavioral Wellness. Kayla is requesting a transfer for the patient to their locked psychiatric unit for further stabilization. This keno writer/runner confirmed with Dr. Helms and Monica director if this is something we can adhere to and they confirmed. Kayla will have to arrange transportation for the patient from [facility] to their facility. Kayla has agreed to this and stated that they will confirm once they have a bed available for the patient, and proceed with the transfer possibly Saturday next week.
[2019-10-16 16:00] VITALS: BP 129/64
[2019-10-16 20:42] VITALS: BP 117/62
[2019-10-16] MEDS: ATORVASTATIN 20 MG TABLET PO SCH (20:58)
[2019-10-16] MEDS: QUETIAPINE FUMARATE 200 MG TABLET PO SCH (20:59)
[2019-10-16] MEDS: TRAZODONE 100 MG TABLET PO SCH (21:00)
--- NOTE | 2019-10-16 22:00 | NUR ---
received to care, lying in bed, pleasant upon approach. remains isolative, in her room. compliant with medications and staff direction. as of 2199, she appears to be asleep. no distress noted. will continue to monitor closely.
--- NOTE | 2019-10-17 06:00 | NUR ---
slept 7.5 hours, total. currently taking a shower. no distress noted.
[2019-10-17 07:30] VITALS: BP 109/66
[2019-10-17] MEDS: GABAPENTIN 300 MG CAPSULE PO SCH (08:36)
[2019-10-17] MEDS: LIDOCAINE 5% PATCH TD SCH (08:36)
[2019-10-17] MEDS: DULOXETINE 60 MG CAPSULE.DR PO SCH (08:36)
[2019-10-17] MEDS: NICOTINE 14 MG/24HR PATCH TD SCH (08:36)
[2019-10-17] MEDS: PANTOPRAZOLE SODIUM 40 MG TABLET.DR PO SCH (08:36)
[2019-10-17] MEDS: FLUTICASONE/VILANTEROL 1 EACH BLST.W.DEV INH SCH (08:37)
[2019-10-17] MEDS: MELOXICAM 7.5 MG TABLET PO SCH (08:37)
[2019-10-17] MEDS: FENOFIBRATE NANOCRYSTALLIZED 48 MG TABLET PO SCH (08:46)
[2019-10-17 16:00] VITALS: BP 91/50
[2019-10-17 20:52] VITALS: BP 122/72
[2019-10-17] MEDS: ATORVASTATIN 20 MG TABLET PO SCH (21:04)
[2019-10-17] MEDS: QUETIAPINE FUMARATE 200 MG TABLET PO SCH (21:04)
[2019-10-17] MEDS: TRAZODONE 100 MG TABLET PO SCH (21:06)
[2019-10-18 07:30] VITALS: BP 137/66
[2019-10-18] MEDS: GABAPENTIN 300 MG CAPSULE PO SCH (08:42)
[2019-10-18] MEDS: PANTOPRAZOLE SODIUM 40 MG TABLET.DR PO SCH (08:42)
[2019-10-18] MEDS: MELOXICAM 7.5 MG TABLET PO SCH (08:42)
[2019-10-18] MEDS: FENOFIBRATE NANOCRYSTALLIZED 48 MG TABLET PO SCH (08:43)
[2019-10-18] MEDS: FLUTICASONE/VILANTEROL 1 EACH BLST.W.DEV INH SCH (08:43)
[2019-10-18] MEDS: DULOXETINE 60 MG CAPSULE.DR PO SCH (08:43)
[2019-10-18] MEDS: NICOTINE 14 MG/24HR PATCH TD SCH (08:43)
[2019-10-18] MEDS: LIDOCAINE 5% PATCH TD SCH (08:43)
--- NOTE | 2019-10-18 10:00 | NUR ---
PATIENT IS COMPLIANT WITH MEDICATIONS AND CARE AT THIS TIME WILL CONTINUE TO OBSERVE AND PROVIDE SAFE AND THERAPEUTIC ENVIRONMENT AT ALL TIMES.
[2019-10-18 16:01] VITALS: BP 108/58
[2019-10-18 17:47] LABS: *BILIRUBIN,URIN NEGATIVE (NEGATIVE); *BLOOD, URINE NEGATIVE (NEGATIVE); *CLARITY,URINE CLEAR (CLEAR); *COLOR,URINE YELLOW (YELLOW); *KETONES,URINE NEGATIVE (NEGATIVE); LEUKOCYTE ESTERASE ,URINE TRACE (NEGATIVE); NITRITE, URINE NEGATIVE (NEGATIVE); UGLUCOSE NEGATIVE (NEGATIVE)
--- NOTE | 2019-10-18 17:52 | NUR ---
PATIENT SEEN AND EXAMINED BY RAHUL MARR WITH ORDER FOR UA URINE COLLECTED AND SENT TO THE LAB ORDERED WILL CHECK RESULTS.
[2019-10-18 18:02] LABS: RBC,URINE NONE SEEN /HPF (0-3)
[2019-10-18] MEDS: ATORVASTATIN 20 MG TABLET PO SCH (20:18)
[2019-10-18] MEDS: QUETIAPINE FUMARATE 200 MG TABLET PO SCH (20:18)
[2019-10-18] MEDS: TRAZODONE 100 MG TABLET PO SCH (20:25)
--- NOTE | 2019-10-19 05:49 | NUR ---
GPS: slept 8.45 hours through the night. remain calm and cooperative. no distress noted.resting in bed comfortably.
[2019-10-19 07:30] VITALS: BP 102/62
[2019-10-19] MEDS: NICOTINE 14 MG/24HR PATCH TD SCH (08:39)
[2019-10-19] MEDS: MELOXICAM 7.5 MG TABLET PO SCH (08:39)
[2019-10-19] MEDS: FLUTICASONE/VILANTEROL 1 EACH BLST.W.DEV INH SCH (08:40)
[2019-10-19] MEDS: DULOXETINE 60 MG CAPSULE.DR PO SCH (08:40)
[2019-10-19] MEDS: GABAPENTIN 300 MG CAPSULE PO SCH (08:40)
[2019-10-19] MEDS: LIDOCAINE 5% PATCH TD SCH (08:40)
[2019-10-19] MEDS: PANTOPRAZOLE SODIUM 40 MG TABLET.DR PO SCH (08:40)
[2019-10-19] MEDS: FENOFIBRATE NANOCRYSTALLIZED 48 MG TABLET PO SCH (08:40)
--- NOTE | 2019-10-19 09:00 | NUR ---
PC Hearing Notification: SW unable to notify family of patient's probable cause hearing for today due to patient not wanting anyone to be contacted.
--- NOTE | 2019-10-19 09:31 | NUR ---
Discharge Planning: Fashion Coordinator left a voicemail for Kayla ([phone]) from the psychiatric health facility in [facility] department of Behavioral Wellness to follow up regarding if they want to proceed with transferring the patient to their psychiatric hospital. Awaiting a call back.
--- NOTE | 2019-10-19 15:32 | NUR ---
GPS: Nursing Notes: Report Given to Facility: Per request, report given to nurse DOMINIQUE Iverson from [facility] in [facility] Department of Behavioral Wellness at . Patient to be transfer to this facility, social service worker to follow up for transportation tomorrow.
[2019-10-19 15:36] VITALS: BP 99/57
[2019-10-19 20:00] VITALS: BP 112/67
[2019-10-19] MEDS: ATORVASTATIN 20 MG TABLET PO SCH (20:26)
[2019-10-19] MEDS: QUETIAPINE FUMARATE 200 MG TABLET PO SCH (20:26)
[2019-10-19] MEDS: TRAZODONE 100 MG TABLET PO SCH (20:27)
--- NOTE | 2019-10-20 06:08 | NUR ---
slept 9.5 hours. continues to sleep. no distress noted.
[2019-10-20 07:30] VITALS: BP 99/52
[2019-10-20] MEDS: GABAPENTIN 300 MG CAPSULE PO SCH (08:22)
[2019-10-20] MEDS: PANTOPRAZOLE SODIUM 40 MG TABLET.DR PO SCH (08:22)
[2019-10-20] MEDS: DULOXETINE 60 MG CAPSULE.DR PO SCH (08:22)
[2019-10-20] MEDS: FENOFIBRATE NANOCRYSTALLIZED 48 MG TABLET PO SCH (08:22)
[2019-10-20] MEDS: LIDOCAINE 5% PATCH TD SCH (08:23)
[2019-10-20] MEDS: MELOXICAM 7.5 MG TABLET PO SCH (08:23)
[2019-10-20] MEDS: FLUTICASONE/VILANTEROL 1 EACH BLST.W.DEV INH SCH (08:23)
[2019-10-20] MEDS: NICOTINE 14 MG/24HR PATCH TD SCH (08:23)
[2019-10-20 15:11] VITALS: BP 90/56
[2019-10-20 20:42] VITALS: BP 92/59
[2019-10-20] MEDS: ATORVASTATIN 20 MG TABLET PO SCH (20:50)
[2019-10-20] MEDS: QUETIAPINE FUMARATE 200 MG TABLET PO SCH (20:50)
[2019-10-20] MEDS: TRAZODONE 100 MG TABLET PO SCH (20:50)
--- NOTE | 2019-10-21 05:55 | NUR ---
Patient slept 9.15 hours, still sleeping. Possible d/c today. No acute distress noted.
[2019-10-21 06:01] VITALS: BP 90/48
[2019-10-21 07:30] VITALS: BP 92/54
[2019-10-21] MEDS: LIDOCAINE 5% PATCH TD SCH (09:17)
[2019-10-21] MEDS: GABAPENTIN 300 MG CAPSULE PO SCH (09:17)
[2019-10-21] MEDS: FLUTICASONE/VILANTEROL 1 EACH BLST.W.DEV INH SCH (09:17)
[2019-10-21] MEDS: DULOXETINE 60 MG CAPSULE.DR PO SCH (09:18)
[2019-10-21] MEDS: PANTOPRAZOLE SODIUM 40 MG TABLET.DR PO SCH (09:18)
[2019-10-21] MEDS: FENOFIBRATE NANOCRYSTALLIZED 48 MG TABLET PO SCH (09:18)
[2019-10-21] MEDS: NICOTINE 14 MG/24HR PATCH TD SCH (09:18)
[2019-10-21] MEDS: MELOXICAM 7.5 MG TABLET PO SCH (09:18)
--- NOTE | 2019-10-21 09:30 | NUR ---
Discharge Note: Patient will be discharged and transferred to [facility] [address] [place] [address] ([phone]). Sukhwinder donahue of [facility] will be providing transportation for the patient to be picked up at 11:30AM today. Patient will be admitted into room 11 left. The accepting psychiatrist will be Dr. Portillo. Nurse to nurse report was given to Zayra ([phone]). Patient is aware and agreeable with discharge plan. Patient denies suicidal or homicidal ideation. Patient denies visual or auditory hallucinations. Patient presents with calm mood and flat affect at this time of discharge. Patient does not have any supportive contacts to notify about her transfer/discharge. Patient was given a brief substance abuse intervention and provide with the following resources, [facility] [address], [address], [place] [address] ([phone]), [facility] [address] [place] [address] ([phone]), Substance Abuse and Mental Health Services Administration ([facility]) National Helpline (552-285-LNVC [phone]). Patient was also provided with the following referrals to [facility] ([phone]), [facility] ([phone]), [facility] ([phone]), National Suicide Prevention Lifeline ([phone]).
== END 2019-10-21 11:30 | DRG 885 ==
LOC: ER 13:35 → GPS 14:26
PROVIDERS: ADMIT Psychiatry & Neurology Psychiatry; ATTEND Nurse Practitioner Acute Care
DX: F31.9 Bipolar disorder, unspecified (principal); K21.9 Gastro-esophageal reflux disease without esophagitis; F17.210 Nicotine dependence, cigarettes, uncomplicated; E53.8 Deficiency of other specified B group vitamins; J44.9 Chronic obstructive pulmonary disease, unspecified; M79.7 Fibromyalgia; E78.5 Hyperlipidemia, unspecified; G31.9 Degenerative disease of nervous system, unspecified; G47.30 Sleep apnea, unspecified; G89.29 Other chronic pain; M06.9 Rheumatoid arthritis, unspecified; I25.2 Old myocardial infarction; I25.10 Atherosclerotic heart disease of native coronary artery without angina pectoris; Z90.710 Acquired absence of both cervix and uterus; Z85.820 Personal history of malignant melanoma of skin; Z79.51 Long term (current) use of inhaled steroids; M17.12 Unilateral primary osteoarthritis, left knee; I10 Essential (primary) hypertension; Z59.0 Homelessness
CPT/HCPCS: 36415; 87086; 90686; A4663